=== PATIENT | male | born 1975 | race Caucasian/White ===

== ENCOUNTER → 2017-12-08 15:18 | Outpatient (CLI) | payer OTHER, MEDICAID, SELFPAY ==
--- NOTE | 2017-12-08 | DI.MRI.S_ITS ---
PROCEDURE: MR CERVICAL SPINE WO CON INDICATIONS: Cervical stenosis TECHNIQUE: Noncontrast sagittal T1 spin echo and T2 fast spin echo, sagittal STIR, foraminal oblique sagittal T2 fast spin echo, and axial gradient echo or T2 fast spin echo through the cervical spine. COMPARISON: [facility], MR, MR CERVICAL SPINE WITHOUT CONTRAST, 06/14/2017, 20:02. FINDINGS: Image quality: Excellent. Alignment and Curvature: There is loss of normal cervical lordosis. There is anterior fusion of C5-C6. Bone Marrow: Marrow demonstrates normal overall signal. Anterior fusion of C5-C6 has been performed, as before. Spinal Cord: Visualized spinal cord has normal size and signal. No cerebellar tonsillar herniation. Paraspinous Soft Tissues: No paravertebral masses. Prevertebral soft tissues are normal in thickness. C2-C3: Congenital canal stenosis. Disc desiccation and diffuse disc bulge. Bilateral facet hypertrophy. Mild canal stenosis. Mild left foraminal stenosis. No right foraminal stenosis. No change. C3-C4: Congenital canal stenosis. Disc desiccation and diffuse disc bulge. Bilateral facet and uncovertebral hypertrophy. Overall moderate canal stenosis and moderate bilateral foraminal stenosis. No change. C4-C5: Disc desiccation and diffuse disc bulge. Congenital canal stenosis. Bilateral facet and uncovertebral hypertrophy. Mild to moderate canal stenosis. Mild foraminal stenosis bilaterally. No change. C5-C6: Status post fusion. Residual disc osteophyte complex. Bilateral facet and uncovertebral hypertrophy, right greater than left. Congenital canal stenosis. Moderate to severe canal stenosis. Minimal right cord flattening. Severe right and moderate left foraminal stenosis. No change. C6-C7: Congenital canal stenosis. Disc desiccation and diffuse disc bulge with superimposed left paracentral broad-based protrusion. Bilateral facet and uncovertebral hypertrophy. Moderate to severe canal stenosis. Minimal cord flattening. Severe left and moderate right foraminal stenosis. No definite change. C7-T1: Congenital canal stenosis. Disc desiccation and diffuse disc bulge. Bilateral facet and uncovertebral hypertrophy. Mild canal stenosis. Severe left and mild right foraminal stenosis. No change. IMPRESSION: 1. No significant change compared to 1.3.18. 2. Status post C5-C6 fusion. 3. Diffuse congenital canal stenosis with superimposed disc and facet disease, as well as uncovertebral hypertrophy. 4. Multilevel canal stenoses, worst at C5-C6 and C6-C7, where there is minimal cord flattening present. 5. Multilevel foraminal stenoses, worst at C5-C6 right greater than left, at C6-C7 left greater than right, and at C7-T1 left greater than right. Dictated by: Jostin Adame M.D. on 12/08/2017 at 15:55 Approved by: Jostin Adame M.D. on 12/08/2017 at 16:02
== END ==
PROVIDERS: PCP Family Medicine; Visit Provider Neurological Surgery
DX: M48.02 Spinal stenosis, cervical region (principal)
CPT/HCPCS: 72141

== ENCOUNTER → 2020-03-19 08:05 | Outpatient (CLI) | payer OTHER, MEDICAID, SELFPAY ==
[2020-03-19 09:43] LABS: Alanine Aminotransferase 44 IU/L (<50); Albumin 4.3 g/dL (3.5-5.0); Albumin Globulin Ratio 1.6 (1.0-2.8); Alkaline Phosphatase 73 U/L (38-126); Aspartate Aminotransferase 30 IU/L (17-59); Bilirubin Total 0.4 mg/dL (0.2-1.3); Blood Urea Nitrogen 16 mg/dL (9-20); Calcium 9.2 mg/dL (8.4-10.2); Carbon Dioxide 29 mmol/L (22-32); Chloride 104 mmol/L (98-107); Cholesterol 156 mg/dL (140-199); Estimated Glomerular Filt Rate > 60.0 mL/min (>60); Globulin 2.7 g/dL (1.7-4.1); Glucose 99 mg/dL (70-100); HDL Cholesterol 45 mg/dL (40-60); HEMOLYSIS < 15 (0-50); LDL Cholesterol Calculated 71 mg/dL (<100); Potassium 4.2 mmol/L (3.4-5.1); Sodium 140 mmol/L (137-145); Triglycerides 200 mg/dL (35-150)
[2020-03-19 09:43] LABS: Creatinine Urine Random 144.3 mg/dL
[2020-03-19 09:52] LABS: Microalbumin Urine Random < 0.6 mg/dL (0-1.6)
== END ==
PROVIDERS: PCP Family Medicine; Referring Provider Family Medicine; Visit Provider Family Medicine
DX: I10 Essential (primary) hypertension (principal)
CPT/HCPCS: 36415; 80053; 80061; 82043; 82570

== ENCOUNTER → 2020-07-09 15:33 | Outpatient (CLI) | payer OTHER, MEDICAID, SELFPAY | PROVIDERS: PCP Family Medicine | DX: M54.12 Radiculopathy, cervical region (principal) ==

== ENCOUNTER → 2020-07-17 16:34 | Outpatient (CLI) | payer OTHER, MEDICAID, SELFPAY ==
--- NOTE | 2020-07-17 16:42 | DI.MRI.S_ITS ---
PROCEDURE: MR CERVICAL SPINE WO CON INDICATIONS: RADICULOPATHY,CERVICAL REGION TECHNIQUE: Noncontrast sagittal T1 spin echo and T2 fast spin echo, sagittal STIR, foraminal oblique sagittal T2 fast spin echo, and axial gradient echo or T2 fast spin echo through the cervical spine. COMPARISON: [facility], CR, XR CERVICAL SPINE 6+ VIEWS, 06/08/2017, 15:24. [facility], MR, MR CERVICAL SPINE WITHOUT CONTRAST, 06/14/2017, 20:02. [facility], MR, MR CERVICAL SPINE WO CON, 12/08/2017, 15:27. FINDINGS: Image quality: Diagnostic, with note made of motion artifact. There is artifact associated with the metallic hardware. Alignment and Curvature: Reversal of the normal cervical lordosis is seen, with the apex at the C5-C6 level. No focal AP alignment abnormality is seen. Bone Marrow: Marrow demonstrates normal overall signal. Spinal Cord: Visualized spinal cord has normal size and signal. No cerebellar tonsillar herniation. Paraspinous Soft Tissues: No paravertebral masses. Prevertebral soft tissues are normal in thickness. C2-C3: The disc height is well-preserved. Loss of disc signal is seen at this level. A mild degree of generalized disc osteophyte complex is seen. Moderate facet joint hypertrophy is seen. Moderate bilateral neural foraminal narrowing is seen. Mild central canal narrowing is seen. These imaging findings have progressed compared to the prior study. C3-C4: The disc height is well-preserved. Loss of disc signal is seen at this level. Moderate generalized disc osteophyte complex is seen. There is a central disc osteophyte protrusion seen. At least moderate facet can be seen at this level. There is moderate to severe bilateral neural foraminal narrowing seen. At least moderate central canal narrowing is seen. There is associated mass effect upon the ventral spinal cord. These imaging findings have progressed compared to the prior study. C4-C5: The disc height is well-preserved. Loss of disc signal is seen at this level. A mild degree of generalized disc osteophyte complex is seen. Moderate facet joint hypertrophy is seen. Moderate bilateral neural foraminal narrowing can be seen, right worse than left. Moderate central canal narrowing is seen. No associated mass effect can be seen upon ventral spinal cord. When comparison is made with the prior examination, these findings are similar. C5-C6: Postoperative changes are seen at this level, with anterior fixation hardware and a disc spacer. There is associated susceptibility artifact. Apparent interval postoperative change can be seen on the right, with hemilaminotomy. Please correlate with known patient history. Moderate generalized disc osteophyte complex is seen. Mild to moderate facet hypertrophy is seen. There is moderate left-sided and [id number] right-sided neural foraminal narrowing seen. Moderate central canal narrowing is seen. There is a mild degree mass effect upon the ventral spinal cord. This level is overall improved compared to the prior MRI, with resolution of the previously seen right foraminal disc osteophyte protrusion. C6-C7: Moderate loss of disc height is seen. Loss of disc signal is seen. Moderate generalized disc osteophyte complex is seen. Facet there is moderate left-sided and mild right-sided neural foraminal narrowing seen. Mild to moderate central canal narrowing is seen at this level. When comparison is made with the prior examination, these findings are similar. C7-T1: The disc height is well-preserved. Loss of disc signal is seen at this level. Moderate disc osteophyte complex is seen, which is eccentric to the left, with a left foraminal disc osteophyte protrusion, as on series 3, image 41. Mild to moderate facet hypertrophy is seen. There is severe left-sided and at least moderate right-sided neural foraminal narrowing seen. Mild to moderate central canal narrowing is seen. These degenerative changes have progressed compared to the prior. IMPRESSION: Progression of degenerative change at C2-C3, C3-C4, and C7-T1 compared to 2018. Apparent interval right hemilaminotomy with partial discectomy at C5-C6, with resolution of the previously seen right-sided disc osteophyte protrusion and foraminal narrowing. Please correlate with known interval history, however. Dictated by: Narciso Garcia M.D. on 07/17/2020 at 16:41 Approved by: Narciso Garcia M.D. on 07/17/2020 at 16:49
== END ==
PROVIDERS: PCP Family Medicine
DX: M47.22 Other spondylosis with radiculopathy, cervical region (principal)
CPT/HCPCS: 72141

== ENCOUNTER → 2020-09-11 15:35 | Outpatient (CLI) | payer OTHER, MEDICAID, SELFPAY ==
[2020-09-11] MEDS: COVID-19 VACC #1, MRNA(MOD) 100 MCG/0.5 ML VIAL IM (15:42)
== END ==
PROVIDERS: PCP Family Medicine; Visit Provider Internal Medicine
DX: Z23 Encounter for immunization (principal)
CPT/HCPCS: 0011A; 91301

== ENCOUNTER → 2020-10-09 15:35 | Outpatient (CLI) | payer OTHER, MEDICAID, SELFPAY ==
[2020-10-09] MEDS: COVID-19 VACC #2, MRNA(MOD) 100 MCG/0.5 ML VIAL IM (15:44)
== END ==
PROVIDERS: PCP Family Medicine; Visit Provider Internal Medicine
DX: Z23 Encounter for immunization (principal)
CPT/HCPCS: 0012A; 91301

== ENCOUNTER 2021-01-13 13:00 | Outpatient (RCR) | payer OTHER, MEDICAID, SELFPAY ==
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
--- NOTE | 2020-11-04 18:00 | PT.OPPOC ---
Physical, Occupational & Speech Therapy At [facility] Current Diagnoses Spondylosis without myelopathy or radiculopathy, cervical region (11/04/20) Pain in right hand (11/04/20) Pain in left hand (11/04/20) Abnormal posture (11/04/20) Weakness (11/04/20) Visit Care Team Role Provider Type Karena Mora MD Family Provider Physician Primary Care Provider Specialty: Family Practice Address: [address] [place] [address], [place], [place], [facility] Email: [email or web address] Paula Caban MD Attending Provider Non-Staff Referring Provider Specialty: Medical Address: [address] [place] [address], [place], [place], [facility] Email: Plan Of Care PT-OP-T Assessment and Plan Start: 11/03/20 17:49 Freq: Status: Active Protocol: Document 11/04/20 15:22 [facility] (Rec: 11/04/20 16:47 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 LTG Duration 01/04/21 ROM Correction Goal (LTG) pt will improve neck ROM for rotations by at least 20 deg to improve ability to turn when driving. LTG Duration 01/04/21 strength Short Term Goal (STG) pt will be indep with HEP. STG Duration 12/05/20 Form Tamper Operator Goal (LTG) Pt will score 5/5 on EFTto show imrpoved scap and core stabiltiy w/force applied to his system along w/normal ship runner strength for his age w/3 trials. LTG Duration 01/04/21 NDI Impairment Short Term Goal (STG) Pt will imrpove NDI to at least to show improved functional ability. STG Duration 12/05/20 Correction Goal (LTG) Pt will imrpove NDI to at least to show improved functional ability. LTG Duration 01/04/21 Assessment Summary Assessment Pt presents w/ongoing neck pain with radicular pain into B shoulders and hands that is worse in AM and if he does too much which limits his ability to work. He has history of 2 cervical surgeries with one being cervical fusion. He has progressive degeneration per imaging reports recently and is having signifcant enough pain that he cannot work at all anymore or play sports w/ his teenage son. He is very motivated to improve and does stretch at home to help with his pain for relief. He has poor core stability and scap stability as evidenced by scap elevation and body leaning w/ MMT. He would bneeift from skilled PT to work on posture, strength, ROM and pain management. Physical Therapy Plan Frequency and Duration Frequency of Treatment 1-2x.week Duration of Treatment 3 months Plan of Care Start Date 11/04/20 Plan of Care End Date 02/04/21 Therapeutic Interventions Therapeutic Interventions Aquatic Therapy,Balance Training,Gait Training,Home Exercise Program,Joint Mobilizations,Manual Therapy, Neuromuscular Re-education, Patient/Caregiver Education, Self-Care/Home Management,Soft Tissue Mobilization,Taping, Therapeutic Activities, Therapeutic Exercises Modalities Cold Pack/Ice Massage,Electric Stimulation,Hot Packs, Ultrasound Next Visit Focus/Plan Next Note Type Treatment Note Next Visit Plan see what exercises pt is doing and make sure doing w/good form and not aggrevating symptoms, wall posture, work on posture, manual soft tissue to scar & cervical mm, scap PNF Plan of Care Dates Plan of Care Start Date 11/04/20 Plan of Care End Date 02/04/21 Electronically Signed by: Karena Patel, PT 11/04/20 1800 Please Sign and Return: I have reviewed this Plan of Care and certify that the skilled therapy services above are required to meet the patient?s needs. Physician Signature Date Printed Name and Credentials Clinical Instructor Signature Printed Name and Credentials
--- NOTE | 2020-11-06 15:58 | PT.OTN ---
Current Diagnoses Spondylosis without myelopathy or radiculopathy, cervical region (11/06/20) Pain in right hand (11/06/20) Pain in left hand (11/06/20) Abnormal posture (11/06/20) Weakness (11/06/20) Physical Therapy Treatment Note PT-OP-A Visit Information Start: 11/03/20 17:49 Freq: Status: Active Protocol: Document 11/06/20 15:18 SP (Rec: 11/06/20 17:00 SP [id number]) Out-Patient Physical Therapy Visit Information Visit Information Visit Type Treatment Note Visit Start Time 15:18 Visit Stop Time 15:58 Total Visit Minutes 40 Visit Number 08/05 Number of SNORKELLING INSTRUCTOR Visits 1 PT-OP-B Current Condition Start: 11/03/20 17:49 Freq: Status: Active Protocol: Document 11/04/20 15:22 [facility] (Rec: 11/04/20 16:47 [facility] [id number]) Current Condition History of Current Condition Onset Date 13 year old Current Complaints neck pain, arm pain, MENDEZ History of Current Condition Pt reports his last surgery helped his legs (had pain in legs & difficulty walking) and that got better but not his arms. Pt just had a EMG done at [facility] and they told him C5 -8 was messed up mostly on L and some on R. His MDs have told him he has DDD & arthritis. Pt reprots pain in neck started at 13 playing football (he was ramming his head into other players-no specific injury but just noticed neck bothering him then). It just got worse as he got older. Pt got an injection 4-5 years ago and has 3-4 of them over last decade but none have helped. He is supposed ot schedule to get an injection soon. Pt reports this is the first time that the MD thinks that degernation is causing the nerve symptoms. Pt reports he did PT after last surgery and legs got better but neck and arms never got better. Pt reports pain is about the same since when he last got surgery. 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 Pt reports hands don't wrok well so things take him twice as long. denies numbness tingling or lightheadness or dizziness Prior Treatments and Tests surgeries, injections , C5-6 ACDF over 11 years ago, LC6-7, C7-T1 laminotomy/foraminotomy and R C4-5 and C5-6 laminectomy and foraminotomy Future Testing and Treatments Planned Dr. Rivas doing injection Treatment Goals Patient/Caregiver Goals return to work, be able to play catch w/son w/o hurting himself (never has d/t pain), B carpel tunnel release Personal Factors Other Personal Factors That May Effect neck pain, MENDEZ, depression, HTN Therapy/Recovery , 2 neck sugeries, Appy PT-OP-C Subjective Start: 11/03/20 17:49 Freq: Status: Active Protocol: Document 11/06/20 15:18 SP (Rec: 11/06/20 17:00 SP [id number]) OP-PT Subjective Patient Comments Patient Comments Pt reported always have pain and stiffness in my neck I do do some stretching on own and started the pec stretches given last visit with no problems with it. PT-OP-F Manual Assessment Start: 11/03/20 17:49 Freq: Status: Active Protocol: Document 11/04/20 15:22 [facility] (Rec: 11/04/20 16:47 [facility] [id number]) Manual Assessments Soft Tissue Assessment Soft Tissue Mobility Assessment scar significantly adhered, UT & LS, scalenes tight R>L, L>R pec tightness Joint Mobility Assessment Joint Mobility Assessment R 1st rib elevated PT-OP-J Posture/Palpation/Skin Start: 11/03/20 17:49 Freq: Status: Active Protocol: Document 11/04/20 15:22 [facility] (Rec: 11/04/20 16:47 [facility] [id number]) Posture Evaluation John Postural Classification System John Postural Classifications Posterior/Anterior Vertebral Compression Test 1 Comments Posture Comments iknc kyphosis, fwd rounded shoulders , fwd head w/upper cervical ext PT-OP-K Range of Motion Start: 11/03/20 17:49 Freq: Status: Active Protocol: Document 11/04/20 15:22 [facility] (Rec: 11/04/20 16:47 [facility] [id number]) Cervical Spine Range of Motion Cervical Spine Active Degrees Flexion 45 Extension 32 Rotation Left 36 Rotation Right 36 Lateral Flexion Left 38 Lateral Flexion Right 29 ROM Limitations Soft Tissue Tightness,Bony Restriction,Pain PT-OP-L Special Tests Start: 11/03/20 17:49 Freq: Status: Active Protocol: Document 11/04/20 15:22 [facility] (Rec: 11/04/20 16:47 [facility] [id number]) Special Tests Cervical Spine Special Tests Spurling's Test Test Results neg Vertebral Artery Test Results neg Alar Ligament Test Results neg Neural Special Tests- Upper Body Ulnar Nerve Tension Test Results neg R, positive L Radial Nerve Tension Test Results neg L, positive R Median Nerve Tension Test Results positive B PT-OP-M Strength Start: 11/03/20 17:49 Freq: Status: Active Protocol: Document 11/04/20 15:22 [facility] (Rec: 11/04/20 16:47 [facility] [id number]) Shoulder Strength Shoulder Manual Muscle Testing Right Flexion 4+ Good+ Extension 5 Normal Abduction (C5) 4+ Good+ Adduction 5 Normal External Rotation 5 Normal Internal Rotation 5 Normal Horizontal Abduction 5 Normal Horizontal Adduction 5 Normal Left Flexion 4+ Good+ Extension 5 Normal Abduction (C5) 4+ Good+ Adduction 5 Normal External Rotation 5 Normal Internal Rotation 5 Normal Horizontal Abduction 5 Normal Horizontal Adduction 5 Normal Elbow/Forearm Strength Elbow and Forearm Manual Muscle Testing Right Flexion (C6) 4 Good Extension (C7) 5 Normal Pronation 5 Normal Supination 5 Normal Comments pain w/supination Left Flexion (C6) 4 Good Extension (C7) 5 Normal Pronation 5 Normal Supination 5 Normal Hand Rn Baby/Pinch Strength Hand Strength Right Comments 115#, 100#, 100# stave grader strength Left Comments 130#, 105#, 75# stave grader strength PT-OP-Q Treatments Start: 11/03/20 17:49 Freq: Status: Active Protocol: Document 11/06/20 15:18 SP (Rec: 11/06/20 17:00 SP [id number]) Therapeutic Exercises Supine Exercises chin tuck (DNF) Supine Exercise Name no lift Resistance AROM Reps/Minutes 2 sec hold x5 Comments cued slow fluid movement Prone Exercises scap retraction/arm lift/ head lift Prone Exercise Name performed in PT to facilitate alignment (recheck if add to HEP beneficial) Resistance AROM lift and hold adding each after 5 sec hold each Equipment Used forehead on towel roll Reps/Minutes 5 sec hold x5 each added Sitting Exercises CS SNAGS Sitting Exercise Name rotation, demonstrated already doing ext self Side bilateral Equipment Used towel Reps/Minutes 20 hold x3 Comments good feedback response this feels good UT and lev scap stretch Side bilateral Reps/Minutes 30 x2 each Comments cued can give little over pressure with opposite UE. scap retraction w/ shld ER Side bilateral Resistance Tb #2 Reps/Minutes x10 Comments cued tall posture w/ neutral CS, good form Standing Exercises self STMs Standing Exercise Name ball rolling scap complex, MWM post neck theracane head nod/ turns Side bilateral Equipment Used racquetball stand at wall, theracane post neck Comments good feedback response pec stretch Standing Exercise Name corner Side bilateral Reps/Minutes 30 sec x3 Manual Therapy Treatment Soft Tissue Mobilization STMs Body Location UT, Lev scap, suboccipital release Mobilization Type Myofascial Release,Sustained Pressure,Other Intensity/Depth Moderate Body Position Hooklying Comments MWM head nods/ turns, instructed self STMs using theracane MWM and racquetball rolling interscap at wall. 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 LTG Duration 01/04/21 ROM Art Historian Goal (LTG) pt will improve neck ROM for rotations by at least 20 deg to improve ability to turn when driving. LTG Duration 01/04/21 strength Short Term Goal (STG) pt will be indep with HEP. 11/06/20: Initiated: DNF, scap retraction w/ shld ER TB, pec/ UT/ lev scap stretching, CS rotation and ext SNAGS, self STMs using theracane/ racquetball. STG Duration 12/05/20 Skilled Nursing Goal (LTG) Pt will score 5/5 on EFTto show imrpoved scap and core stabiltiy w/force applied to his system along w/normal stave grader strength for his age w/3 trials. LTG Duration 01/04/21 NDI Impairment 27/50 Short Term Goal (STG) Pt will imrpove NDI to at least 22/50 to show improved functional ability. STG Duration 12/05/20 Skilled Nursing Goal (LTG) Pt will imrpove NDI to at least 12/50 to show improved functional ability. LTG Duration 01/04/21 Assessment Summary Assessment Pt responded well to manual, DNF CS stabilization engagement supine/ prone, stretching, MWM self STMs neck w /theracane and rolling post scap musculature at wall and SNAGS and initiated posture scap retraction w/ shld ER TB today able to rotation head more. I feel more loose, I might look into getting a theracane and use my tennis ball at home. Physical Therapy Plan Frequency and Duration Frequency of Treatment 1-2x.week Duration of Treatment 3 months Plan of Care Start Date 11/04/20 Plan of Care End Date 02/04/21 Therapeutic Interventions Therapeutic Interventions Aquatic Therapy,Balance Training,Gait Training,Home Exercise Program,Joint Mobilizations,Manual Therapy, Neuromuscular Re-education, Patient/Caregiver Education, Self-Care/Home Management,Soft Tissue Mobilization,Taping, Therapeutic Activities, Therapeutic Exercises Modalities Cold Pack/Ice Massage,Electric Stimulation,Hot Packs, Ultrasound Next Visit Focus/Plan Next Note Type Treatment Note Next Visit Plan Assess response to initiated ( see HEP goal) and ther ex did today. recheck what exercises pt is doing on own and make sure doing w/good form and not aggrevating symptoms. Future tx initiate wall posture, work on posture, manual soft tissue to scar & cervical mm, scap PNF
--- NOTE | 2020-11-11 15:10 | PT.OTN ---
Current Diagnoses Spondylosis without myelopathy or radiculopathy, cervical region (11/11/20) Pain in right hand (11/11/20) Pain in left hand (11/11/20) Abnormal posture (11/11/20) Weakness (11/11/20) Physical Therapy Treatment Note PT-OP-A Visit Information Start: 11/03/20 17:49 Freq: Status: Active Protocol: Document 11/11/20 15:03 OF (Rec: 11/11/20 15:10 OF [id number]) Out-Patient Physical Therapy Visit Information Visit Information Visit Type Treatment Note Visit Start Time 13:40 Visit Stop Time 14:20 Total Visit Minutes 40 Visit Number 3 Number of SURFACE SUPPLY BREATHING APPARATUS Visits 1 PT-OP-B Current Condition Start: 11/03/20 17:49 Freq: Status: Active Protocol: Document 11/04/20 15:22 [facility] (Rec: 11/04/20 16:47 [facility] [id number]) Current Condition History of Current Condition Onset Date 13 year old Current Complaints neck pain, arm pain, MENDEZ History of Current Condition Pt reports his last surgery helped his legs (had pain in legs & difficulty walking) and that got better but not his arms. Pt just had a EMG done at [facility] and they told him C5 -8 was messed up mostly on L and some on R. His MDs have told him he has DDD & arthritis. Pt reprots pain in neck started at 13 playing football (he was ramming his head into other players-no specific injury but just noticed neck bothering him then). It just got worse as he got older. Pt got an injection 4-5 years ago and has 3-4 of them over last decade but none have helped. He is supposed ot schedule to get an injection soon. Pt reports this is the first time that the MD thinks that degernation is causing the nerve symptoms. Pt reports he did PT after last surgery and legs got better but neck and arms never got better. Pt reports pain is about the same since when he last got surgery. 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 Pt reports hands don't wrok well so things take him twice as long. denies numbness tingling or lightheadness or dizziness Prior Treatments and Tests surgeries, injections , C5-6 ACDF over 11 years ago, LC6-7, C7-T1 laminotomy/foraminotomy and R C4-5 and C5-6 laminectomy and foraminotomy Future Testing and Treatments Planned Dr. Rivas doing injection Treatment Goals Patient/Caregiver Goals return to work, be able to play catch w/son w/o hurting himself (never has d/t pain), B carpel tunnel release Personal Factors Other Personal Factors That May Effect neck pain, MENDEZ, depression, HTN Therapy/Recovery , 2 neck sugeries, Appy PT-OP-C Subjective Start: 11/03/20 17:49 Freq: Status: Active Protocol: Document 11/11/20 15:03 OF (Rec: 11/11/20 15:10 OF [id number]) OP-PT Subjective Patient Comments Patient Comments Pt states he has had difficulty adhering to HEP, not performing daily Patient Reported Progress Same Patient Questionnaires Neck Disability Index NDI Score 27/50 Quick Dash- Upper Extremity Quick Dash UE Score 47.2 OP-PT Pain Assessment Pain Assessment Grid Paper Pain Assessment Grid Completed Yes Location neck Pain Location Details R>L post neck & UT region Intensity 3 Scale Used worst:8/10 Description Aching,Cramping,Sharp Frequency Daily Pain Aggravating Factors Lifting Other Pain Aggravating Factors 1st thing in AM, neck in weird position Pain Alleviating Factors Heat Other Pain Alleviating Factors stop&do nothing, has to change postition d/t ext anything hurts, stretch PT-OP-F Manual Assessment Start: 11/03/20 17:49 Freq: Status: Active Protocol: Document 11/04/20 15:22 [facility] (Rec: 11/04/20 16:47 [facility] [id number]) Manual Assessments Soft Tissue Assessment Soft Tissue Mobility Assessment scar significantly adhered, UT & LS, scalenes tight R>L, L>R pec tightness Joint Mobility Assessment Joint Mobility Assessment R 1st rib elevated PT-OP-J Posture/Palpation/Skin Start: 11/03/20 17:49 Freq: Status: Active Protocol: Document 11/04/20 15:22 [facility] (Rec: 11/04/20 16:47 [facility] [id number]) Posture Evaluation John Postural Classification System [facility] Postural Classifications Posterior/Anterior Vertebral Compression Test 1 Comments Posture Comments iknc kyphosis, fwd rounded shoulders , fwd head w/upper cervical ext PT-OP-K Range of Motion Start: 11/03/20 17:49 Freq: Status: Active Protocol: Document 11/04/20 15:22 [facility] (Rec: 11/04/20 16:47 [facility] [id number]) Cervical Spine Range of Motion Cervical Spine Active Degrees Flexion 45 Extension 32 Rotation Left 36 Rotation Right 36 Lateral Flexion Left 38 Lateral Flexion Right 29 ROM Limitations Soft Tissue Tightness,Bony Restriction,Pain PT-OP-L Special Tests Start: 11/03/20 17:49 Freq: Status: Active Protocol: Document 11/04/20 15:22 [facility] (Rec: 11/04/20 16:47 [facility] [id number]) Special Tests Cervical Spine Special Tests Spurling's Test Test Results neg Vertebral Artery Test Results neg Alar Ligament Test Results neg Neural Special Tests- Upper Body Ulnar Nerve Tension Test Results neg R, positive L Radial Nerve Tension Test Results neg L, positive R Median Nerve Tension Test Results positive B PT-OP-M Strength Start: 11/03/20 17:49 Freq: Status: Active Protocol: Document 11/04/20 15:22 [facility] (Rec: 11/04/20 16:47 [facility] [id number]) Shoulder Strength Shoulder Manual Muscle Testing Right Flexion 4+ Good+ Extension 5 Normal Abduction (C5) 4+ Good+ Adduction 5 Normal External Rotation 5 Normal Internal Rotation 5 Normal Horizontal Abduction 5 Normal Horizontal Adduction 5 Normal Left Flexion 4+ Good+ Extension 5 Normal Abduction (C5) 4+ Good+ Adduction 5 Normal External Rotation 5 Normal Internal Rotation 5 Normal Horizontal Abduction 5 Normal Horizontal Adduction 5 Normal Elbow/Forearm Strength Elbow and Forearm Manual Muscle Testing Right Flexion (C6) 4 Good Extension (C7) 5 Normal Pronation 5 Normal Supination 5 Normal Comments pain w/supination Left Flexion (C6) 4 Good Extension (C7) 5 Normal Pronation 5 Normal Supination 5 Normal Hand Air Pollution Auditor/Pinch Strength Hand Strength Right Comments 115#, 100#, 100# washer blanket strength Left Comments 130#, 105#, 75# washer blanket strength PT-OP-Q Treatments Start: 11/03/20 17:49 Freq: Status: Active Protocol: Document 11/11/20 15:03 OF (Rec: 11/11/20 15:10 OF [id number]) Therapeutic Exercises Supine Exercises chin tuck (DNF) Supine Exercise Name no lift Resistance AROM Reps/Minutes 2 sec hold x5 Comments cued slow fluid movement Prone Exercises scap retraction/arm lift/ head lift Prone Exercise Name performed in PT to facilitate alignment (recheck if add to HEP beneficial) Resistance AROM lift and hold adding each after 5 sec hold each Equipment Used forehead on towel roll Reps/Minutes 5 sec hold x5 each added Sitting Exercises CS SNAGS Sitting Exercise Name rotation, demonstrated already doing ext self Side bilateral Equipment Used towel Reps/Minutes 20 hold x3 UT and lev scap stretch Side bilateral Reps/Minutes 30 x2 each Comments cued can give little over pressure with opposite UE. scap retraction w/ shld ER Side bilateral Resistance Tb #2 Reps/Minutes x10 Comments cued tall posture w/ neutral CS, good form Standing Exercises self STMs Standing Exercise Name ball rolling scap complex, MWM post neck Side bilateral Equipment Used racquetball stand at wall pec stretch Standing Exercise Name corner Side bilateral Reps/Minutes 30 sec x3 Manual Therapy Treatment Soft Tissue Mobilization STMs Mobilization Type Sustained Pressure,Other Self-Care/Home Management Treatment Education Other Education pt advised to perform HEP as instructed, pace self, use towel and ball for assisting stretch PT-OP-T Assessment and Plan Start: 11/03/20 17:49 Freq: Status: Active Protocol: Document 11/11/20 15:03 OF (Rec: 11/11/20 15:10 OF [id number]) Physical Therapy Assessment Rehab Potential Rehabilitation Potential Good Evaluation Complexity Number of Personal Factors/Comorbidities 3 or More Number of Body Systems Impaired 4 or More Clinical Presentation at Evaluation Evolving Impairments Impairments Activity Tolerance,Functional Activities,Functional Mobility ,Pain,Posture,ROM,Soft Tissue Mobility,Strength Goals activities Correction Goal (LTG) 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 LTG Duration 01/04/21 ROM Correction Goal (LTG) pt will improve neck ROM for rotations by at least 20 deg to improve ability to turn when driving. LTG Duration 01/04/21 strength Short Term Goal (STG) pt will be indep with HEP. 11/06/20: Initiated: DNF, scap retraction w/ shld ER TB, pec/ UT/ lev scap stretching, CS rotation and ext SNAGS, self STMs using theracane/ racquetball. STG Duration 12/05/20 Correction Goal (LTG) Pt will score 5/5 on EFTto show imrpoved scap and core stabiltiy w/force applied to his system along w/normal washer blanket strength for his age w/3 trials. LTG Duration 01/04/21 NDI Impairment 27/50 Short Term Goal (STG) Pt will imrpove NDI to at least 22/50 to show improved functional ability. STG Duration 12/05/20 French Pastry Cook Goal (LTG) Pt will imrpove NDI to at least 12/50 to show improved functional ability. LTG Duration 01/04/21 Assessment Summary Assessment Pt responded well to manual, DNF CS stabilization engagement supine/ prone, stretching, MWM rolling post scap musculature at wall and SNAGS and initiated posture scap retraction w/ shld ER TB today able to rotation head more. I feel more better than when I came in Physical Therapy Plan Frequency and Duration Frequency of Treatment 1-2x.week Duration of Treatment 3 months Plan of Care Start Date 11/04/20 Plan of Care End Date 02/04/21 Therapeutic Interventions Therapeutic Interventions Aquatic Therapy,Balance Training,Gait Training,Home Exercise Program,Joint Mobilizations,Manual Therapy, Neuromuscular Re-education, Patient/Caregiver Education, Self-Care/Home Management,Soft Tissue Mobilization,Taping, Therapeutic Activities, Therapeutic Exercises Modalities Cold Pack/Ice Massage,Electric Stimulation,Hot Packs, Ultrasound Next Visit Focus/Plan Next Note Type Treatment Note Next Visit Plan Pt is <50% accurate with HEP, continue to educate on proper technique. Future tx initiate wall posture, work on posture, manual soft tissue to scar & cervical mm, scap PNF
--- NOTE | 2020-11-20 16:12 | PT.OTN ---
Current Diagnoses Spondylosis without myelopathy or radiculopathy, cervical region (11/20/20) Pain in right hand (11/20/20) Pain in left hand (11/20/20) Abnormal posture (11/20/20) Weakness (11/20/20) Physical Therapy Treatment Note PT-OP-A Visit Information Start: 11/03/20 17:49 Freq: Status: Active Protocol: Document 11/20/20 15:33 MA (Rec: 11/20/20 16:11 MA [id number]) Out-Patient Physical Therapy Visit Information Visit Information Visit Type Treatment Note Visit Start Time 15:15 Visit Stop Time 16:55 Total Visit Minutes 40 Visit Number 4 Number of SECURITY ORDERLY Visits 2 PT-OP-B Current Condition Start: 11/03/20 17:49 Freq: Status: Active Protocol: Document 11/04/20 15:22 LR (Rec: 11/04/20 16:47 LR [id number]) Current Condition History of Current Condition Onset Date 13 year old Current Complaints neck pain, arm pain, MENDEZ History of Current Condition Pt reports his last surgery helped his legs (had pain in legs & difficulty walking) and that got better but not his arms. Pt just had a EMG done at [facility] and they told him C5 -8 was messed up mostly on L and some on R. His MDs have told him he has DDD & arthritis. Pt reprots pain in neck started at 13 playing football (he was ramming his head into other players-no specific injury but just noticed neck bothering him then). It just got worse as he got older. Pt got an injection 4-5 years ago and has 3-4 of them over last decade but none have helped. He is supposed ot schedule to get an injection soon. Pt reports this is the first time that the MD thinks that degernation is causing the nerve symptoms. Pt reports he did PT after last surgery and legs got better but neck and arms never got better. Pt reports pain is about the same since when he last got surgery. 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 Pt reports hands don't wrok well so things take him twice as long. denies numbness tingling or lightheadness or dizziness Prior Treatments and Tests surgeries, injections , C5-6 ACDF over 11 years ago, LC6-7, C7-T1 laminotomy/foraminotomy and R C4-5 and C5-6 laminectomy and foraminotomy Future Testing and Treatments Planned Dr. Rivas doing injection Treatment Goals Patient/Caregiver Goals return to work, be able to play catch w/son w/o hurting himself (never has d/t pain), B carpel tunnel release Personal Factors Other Personal Factors That May Effect neck pain, MENDEZ, depression, HTN Therapy/Recovery , 2 neck sugeries, Appy PT-OP-C Subjective Start: 11/03/20 17:49 Freq: Status: Active Protocol: Document 11/20/20 15:33 MA (Rec: 11/20/20 16:11 MA [id number]) OP-PT Subjective Patient Comments Patient Comments Pt states he has been doing HEP more often. PT-OP-F Manual Assessment Start: 11/03/20 17:49 Freq: Status: Active Protocol: Document 11/04/20 15:22 [facility] (Rec: 11/04/20 16:47 [facility] [id number]) Manual Assessments Soft Tissue Assessment Soft Tissue Mobility Assessment scar significantly adhered, UT & LS, scalenes tight R>L, L>R pec tightness Joint Mobility Assessment Joint Mobility Assessment R 1st rib elevated PT-OP-J Posture/Palpation/Skin Start: 11/03/20 17:49 Freq: Status: Active Protocol: Document 11/04/20 15:22 [facility] (Rec: 11/04/20 16:47 [facility] [id number]) Posture Evaluation [facility] Postural Classification System John Postural Classifications Posterior/Anterior Vertebral Compression Test 1 Comments Posture Comments iknc kyphosis, fwd rounded shoulders , fwd head w/upper cervical ext PT-OP-K Range of Motion Start: 11/03/20 17:49 Freq: Status: Active Protocol: Document 11/04/20 15:22 [facility] (Rec: 11/04/20 16:47 [facility] [id number]) Cervical Spine Range of Motion Cervical Spine Active Degrees Flexion 45 Extension 32 Rotation Left 36 Rotation Right 36 Lateral Flexion Left 38 Lateral Flexion Right 29 ROM Limitations Soft Tissue Tightness,Bony Restriction,Pain PT-OP-L Special Tests Start: 11/03/20 17:49 Freq: Status: Active Protocol: Document 11/04/20 15:22 [facility] (Rec: 11/04/20 16:47 [facility] [id number]) Special Tests Cervical Spine Special Tests Spurling's Test Test Results neg Vertebral Artery Test Results neg Alar Ligament Test Results neg Neural Special Tests- Upper Body Ulnar Nerve Tension Test Results neg R, positive L Radial Nerve Tension Test Results neg L, positive R Median Nerve Tension Test Results positive B PT-OP-M Strength Start: 11/03/20 17:49 Freq: Status: Active Protocol: Document 11/04/20 15:22 [facility] (Rec: 11/04/20 16:47 [facility] [id number]) Shoulder Strength Shoulder Manual Muscle Testing Right Flexion 4+ Good+ Extension 5 Normal Abduction (C5) 4+ Good+ Adduction 5 Normal External Rotation 5 Normal Internal Rotation 5 Normal Horizontal Abduction 5 Normal Horizontal Adduction 5 Normal Left Flexion 4+ Good+ Extension 5 Normal Abduction (C5) 4+ Good+ Adduction 5 Normal External Rotation 5 Normal Internal Rotation 5 Normal Horizontal Abduction 5 Normal Horizontal Adduction 5 Normal Elbow/Forearm Strength Elbow and Forearm Manual Muscle Testing Right Flexion (C6) 4 Good Extension (C7) 5 Normal Pronation 5 Normal Supination 5 Normal Comments pain w/supination Left Flexion (C6) 4 Good Extension (C7) 5 Normal Pronation 5 Normal Supination 5 Normal Hand Children'S Author/Pinch Strength Hand Strength Right Comments 115#, 100#, 100# superintendent custodian janitor strength Left Comments 130#, 105#, 75# superintendent custodian janitor strength PT-OP-Q Treatments Start: 11/03/20 17:49 Freq: Status: Active Protocol: Document 11/20/20 15:33 MA (Rec: 11/20/20 16:11 MA [id number]) Therapeutic Exercises Supine Exercises chin tuck (DNF) Supine Exercise Name no lift Resistance AROM Reps/Minutes 2 sec hold x5 Comments cued slow fluid movement Prone Exercises scap retraction/arm lift/ head lift Prone Exercise Name performed in PT to facilitate alignment (recheck if add to HEP beneficial) Resistance AROM lift and hold adding each after 5 sec hold each Equipment Used forehead on towel roll Reps/Minutes 5 sec hold x5 each added Sitting Exercises CS SNAGS Sitting Exercise Name rotation, demonstrated already doing ext self Side bilateral Equipment Used towel Reps/Minutes 20 hold x3 UT and lev scap stretch Side bilateral Reps/Minutes 30 x2 each Comments cued can give little over pressure with opposite UE. scap retraction w/ shld ER Side bilateral Resistance Tb #2 Reps/Minutes x10 Comments cued tall posture w/ neutral CS, good form Standing Exercises Wall Posture Reps/Minutes 5x10 sec hold Comments cues for keeping spine against wall self STMs Standing Exercise Name ball rolling scap complex, MWM post neck Side bilateral Equipment Used racquetball stand at wall pec stretch Standing Exercise Name doorway Side bilateral Reps/Minutes 30 sec x3 Manual Therapy Treatment Soft Tissue Mobilization STMs Body Location UT, Lev scap, suboccipital release Mobilization Type Myofascial Release,Sustained Pressure,Other Intensity/Depth Moderate Body Position Hooklying Comments MWM head nods/ turns, instructed self STMs using theracane MWM and racquetball rolling interscap at wall. 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 LTG Duration 01/04/21 ROM Mcc Goal (LTG) pt will improve neck ROM for rotations by at least 20 deg to improve ability to turn when driving. LTG Duration 01/04/21 strength Short Term Goal (STG) pt will be indep with HEP. 11/06/20: Initiated: DNF, scap retraction w/ shld ER TB, pec/ UT/ lev scap stretching, CS rotation and ext SNAGS, self STMs using theracane/ racquetball. STG Duration 12/05/20 Electric Motors Salesperson Goal (LTG) Pt will score 5/5 on EFTto show imrpoved scap and core stabiltiy w/force applied to his system along w/normal superintendent custodian janitor strength for his age w/3 trials. LTG Duration 01/04/21 NDI Impairment 27/50 Short Term Goal (STG) Pt will imrpove NDI to at least 22/50 to show improved functional ability. STG Duration 12/05/20 Mcc Goal (LTG) Pt will imrpove NDI to at least 12/50 to show improved functional ability. LTG Duration 01/04/21 Assessment Summary Assessment Pt responds well again to manual therapy. When it comes time to review HEP exercises, pt cannot recall or properly demonstrate 5/7 of his exercises stating I don't think I have been shown this exercise before during multiple exercises. He can recall pec stretch properly but performs levator stretch improperly by pushing his head laterally instead of gently pulling laterally, moving ear toward shoulder. When corrected, pt states this feels so much better than what I was doing. Brought back up pictures of exercise from HEP with pt stating he still has his copy and does not need a new print out. Reminded pt of importance of performing HEP daily to see improvement in neck pain. Pt agrees to get tennis balls this weekend for self-STM and begin working on his exercises more often. Physical Therapy Plan Frequency and Duration Frequency of Treatment 1-2x.week Duration of Treatment 3 months Plan of Care Start Date 11/04/20 Plan of Care End Date 02/04/21 Therapeutic Interventions Therapeutic Interventions Aquatic Therapy,Balance Training,Gait Training,Home Exercise Program,Joint Mobilizations,Manual Therapy, Neuromuscular Re-education, Patient/Caregiver Education, Self-Care/Home Management,Soft Tissue Mobilization,Taping, Therapeutic Activities, Therapeutic Exercises Modalities Cold Pack/Ice Massage,Electric Stimulation,Hot Packs, Ultrasound Next Visit Focus/Plan Next Note Type Treatment Note Next Visit Plan Review all HEP exercises and continue working on wall posture. Continue to educate on proper technique for levator stretch. Manual soft tissue to scar & cervical mm, scap PNF
--- NOTE | 2020-11-25 14:30 | PT.OTN ---
Current Diagnoses Spondylosis without myelopathy or radiculopathy, cervical region (11/25/20) Pain in right hand (11/25/20) Pain in left hand (11/25/20) Abnormal posture (11/25/20) Weakness (11/25/20) Physical Therapy Treatment Note PT-OP-A Visit Information Start: 11/03/20 17:49 Freq: Status: Active Protocol: Document 11/25/20 14:23 OF (Rec: 11/25/20 14:29 OF [id number]) Out-Patient Physical Therapy Visit Information Visit Information Visit Type Treatment Note Visit Start Time 13:44 Visit Stop Time 14:20 Total Visit Minutes 36 Visit Number 4 PT-OP-B Current Condition Start: 11/03/20 17:49 Freq: Status: Active Protocol: Document 11/04/20 15:22 [facility] (Rec: 11/04/20 16:47 [facility] [id number]) Current Condition History of Current Condition Onset Date 13 year old Current Complaints neck pain, arm pain, MENDEZ History of Current Condition Pt reports his last surgery helped his legs (had pain in legs & difficulty walking) and that got better but not his arms. Pt just had a EMG done at [facility] and they told him C5 -8 was messed up mostly on L and some on R. His MDs have told him he has DDD & arthritis. Pt reprots pain in neck started at 13 playing football (he was ramming his head into other players-no specific injury but just noticed neck bothering him then). It just got worse as he got older. Pt got an injection 4-5 years ago and has 3-4 of them over last decade but none have helped. He is supposed ot schedule to get an injection soon. Pt reports this is the first time that the MD thinks that degernation is causing the nerve symptoms. Pt reports he did PT after last surgery and legs got better but neck and arms never got better. Pt reports pain is about the same since when he last got surgery. 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 Pt reports hands don't wrok well so things take him twice as long. denies numbness tingling or lightheadness or dizziness Prior Treatments and Tests surgeries, injections , C5-6 ACDF over 11 years ago, LC6-7, C7-T1 laminotomy/foraminotomy and R C4-5 and C5-6 laminectomy and foraminotomy Future Testing and Treatments Planned Dr. Rivas doing injection Treatment Goals Patient/Caregiver Goals return to work, be able to play catch w/son w/o hurting himself (never has d/t pain), B carpel tunnel release Personal Factors Other Personal Factors That May Effect neck pain, MENDEZ, depression, HTN Therapy/Recovery , 2 neck sugeries, Appy PT-OP-C Subjective Start: 11/03/20 17:49 Freq: Status: Active Protocol: Document 11/25/20 14:23 OF (Rec: 11/25/20 14:29 OF [id number]) OP-PT Subjective Patient Comments Patient Comments Pt states he has been unable to perform HEP, he states he has not obtained ball for self STM Patient Reported Progress Improving OP-PT Pain Assessment Pain Assessment Grid Paper Pain Assessment Grid Completed No Location neck Pain Location Details mid cervical Intensity 3 Scale Used worst:8/10 Description Aching,Cramping,Sharp,Spasm Frequency Daily Pain Aggravating Factors ADL's,Exercise,Lifting Other Pain Alleviating Factors stretching reduces symptoms PT-OP-F Manual Assessment Start: 11/03/20 17:49 Freq: Status: Active Protocol: Document 11/04/20 15:22 [facility] (Rec: 11/04/20 16:47 [facility] [id number]) Manual Assessments Soft Tissue Assessment Soft Tissue Mobility Assessment scar significantly adhered, UT & LS, scalenes tight R>L, L>R pec tightness Joint Mobility Assessment Joint Mobility Assessment R 1st rib elevated PT-OP-J Posture/Palpation/Skin Start: 11/03/20 17:49 Freq: Status: Active Protocol: Document 11/04/20 15:22 [facility] (Rec: 11/04/20 16:47 [facility] [id number]) Posture Evaluation John Postural Classification System John Postural Classifications Posterior/Anterior Vertebral Compression Test 1 Comments Posture Comments iknc kyphosis, fwd rounded shoulders , fwd head w/upper cervical ext PT-OP-K Range of Motion Start: 11/03/20 17:49 Freq: Status: Active Protocol: Document 11/04/20 15:22 [facility] (Rec: 11/04/20 16:47 [facility] [id number]) Cervical Spine Range of Motion Cervical Spine Active Degrees Flexion 45 Extension 32 Rotation Left 36 Rotation Right 36 Lateral Flexion Left 38 Lateral Flexion Right 29 ROM Limitations Soft Tissue Tightness,Bony Restriction,Pain PT-OP-L Special Tests Start: 11/03/20 17:49 Freq: Status: Active Protocol: Document 11/04/20 15:22 [facility] (Rec: 11/04/20 16:47 [facility] [id number]) Special Tests Cervical Spine Special Tests Spurling's Test Test Results neg Vertebral Artery Test Results neg Alar Ligament Test Results neg Neural Special Tests- Upper Body Ulnar Nerve Tension Test Results neg R, positive L Radial Nerve Tension Test Results neg L, positive R Median Nerve Tension Test Results positive B PT-OP-M Strength Start: 11/03/20 17:49 Freq: Status: Active Protocol: Document 11/04/20 15:22 [facility] (Rec: 11/04/20 16:47 [facility] [id number]) Shoulder Strength Shoulder Manual Muscle Testing Right Flexion 4+ Good+ Extension 5 Normal Abduction (C5) 4+ Good+ Adduction 5 Normal External Rotation 5 Normal Internal Rotation 5 Normal Horizontal Abduction 5 Normal Horizontal Adduction 5 Normal Left Flexion 4+ Good+ Extension 5 Normal Abduction (C5) 4+ Good+ Adduction 5 Normal External Rotation 5 Normal Internal Rotation 5 Normal Horizontal Abduction 5 Normal Horizontal Adduction 5 Normal Elbow/Forearm Strength Elbow and Forearm Manual Muscle Testing Right Flexion (C6) 4 Good Extension (C7) 5 Normal Pronation 5 Normal Supination 5 Normal Comments pain w/supination Left Flexion (C6) 4 Good Extension (C7) 5 Normal Pronation 5 Normal Supination 5 Normal Hand Technology Advisor/Pinch Strength Hand Strength Right Comments 115#, 100#, 100# technical operations manager strength Left Comments 130#, 105#, 75# technical operations manager strength PT-OP-Q Treatments Start: 11/03/20 17:49 Freq: Status: Active Protocol: Document 11/25/20 14:23 OF (Rec: 11/25/20 14:29 OF [id number]) Therapeutic Exercises Supine Exercises chin tuck (DNF) Supine Exercise Name no lift Resistance AROM Reps/Minutes 5 sec hold x5 Comments cued slow fluid movement, scm relaxed Prone Exercises scap retraction/arm lift/ head lift Prone Exercise Name performed in PT to facilitate alignment (recheck if add to HEP beneficial) Resistance AROM lift and hold adding each after 5 sec hold each Equipment Used forehead on towel roll Reps/Minutes 5 sec hold x5 each added Comments pt advised to add to HEP Sitting Exercises CS SNAGS Sitting Exercise Name rotation, demonstrated already doing ext self Side bilateral Equipment Used towel Reps/Minutes 20 hold x3 UT and lev scap stretch Side bilateral Reps/Minutes 30 x2 each Comments cued can give little over pressure with opposite UE. scap retraction w/ shld ER Side bilateral Resistance Tb #3 Reps/Minutes 3x10 Comments cued tall posture w/ neutral CS, good form Standing Exercises self STMs Standing Exercise Name ball rolling scap complex, MWM post neck, rhomboids Side bilateral Equipment Used racquetball stand at wall Reps/Minutes 3min pec stretch Standing Exercise Name doorway Side bilateral Reps/Minutes 30 sec x3 Manual Therapy Treatment Soft Tissue Mobilization STMs Mobilization Type Myofascial Release Intensity/Depth Moderate Body Position Supine Comments sub occipital release, cervical traction, manual, pt educated upon assist from family for gentle ROM Self-Care/Home Management Treatment Education Patient Education Body Mechanics,Home Exercise Program,Pain Management Other Education pt again educated upon HEP daily to improve symptoms PT-OP-T Assessment and Plan Start: 11/03/20 17:49 Freq: Status: Active Protocol: Document 11/25/20 14:23 OF (Rec: 11/25/20 14:29 OF [id number]) Physical Therapy Assessment Rehab Potential Rehabilitation Potential Good Evaluation Complexity Number of Personal Factors/Comorbidities 1-2 Number of Body Systems Impaired 1-2 Clinical Presentation at Evaluation Evolving Impairments Impairments Pain,ROM,Soft Tissue Mobility, Strength Progress Towards Goals Progress Towards Goals Slow Progress due to Activity Tolerance,Slow Progress due to Attendance Issues,Slow Progress due to Medical Issues Assessment Summary Assessment Pt responds well again to manual therapy. When it comes time to review HEP exercises, pt is 50% accurate with HEP. He states he has not obtained ball for STM, states he will this week. Pt advised to order online if it is difficult to locate a tennis/raquetball. He has improved tolerance for therex, but would benefit from a more focused approach outside of skilled therapy.
--- NOTE | 2020-11-30 17:29 | PT.OTN ---
Current Diagnoses Spondylosis without myelopathy or radiculopathy, cervical region (11/30/20) Pain in right hand (11/30/20) Pain in left hand (11/30/20) Abnormal posture (11/30/20) Weakness (11/30/20) Physical Therapy Treatment Note PT-OP-A Visit Information Start: 11/03/20 17:49 Freq: Status: Active Protocol: Document 11/30/20 16:45 MA (Rec: 11/30/20 17:29 MA [id number]) Out-Patient Physical Therapy Visit Information Visit Information Visit Type Treatment Note Visit Start Time 16:45 Visit Stop Time 17:25 Total Visit Minutes 40 Visit Number 5 Number of PERSONNEL GENERALIST MANAGER Visits 1 PT-OP-B Current Condition Start: 11/03/20 17:49 Freq: Status: Active Protocol: Document 11/04/20 15:22 [facility] (Rec: 11/04/20 16:47 [facility] [id number]) Current Condition History of Current Condition Onset Date 13 year old Current Complaints neck pain, arm pain, MENDEZ History of Current Condition Pt reports his last surgery helped his legs (had pain in legs & difficulty walking) and that got better but not his arms. Pt just had a EMG done at [facility] and they told him C5 -8 was messed up mostly on L and some on R. His MDs have told him he has DDD & arthritis. Pt reprots pain in neck started at 13 playing football (he was ramming his head into other players-no specific injury but just noticed neck bothering him then). It just got worse as he got older. Pt got an injection 4-5 years ago and has 3-4 of them over last decade but none have helped. He is supposed ot schedule to get an injection soon. Pt reports this is the first time that the MD thinks that degernation is causing the nerve symptoms. Pt reports he did PT after last surgery and legs got better but neck and arms never got better. Pt reports pain is about the same since when he last got surgery. 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 Pt reports hands don't wrok well so things take him twice as long. denies numbness tingling or lightheadness or dizziness Prior Treatments and Tests surgeries, injections , C5-6 ACDF over 11 years ago, LC6-7, C7-T1 laminotomy/foraminotomy and R C4-5 and C5-6 laminectomy and foraminotomy Future Testing and Treatments Planned Dr. Rivas doing injection Treatment Goals Patient/Caregiver Goals return to work, be able to play catch w/son w/o hurting himself (never has d/t pain), B carpel tunnel release Personal Factors Other Personal Factors That May Effect neck pain, MENDEZ, depression, HTN Therapy/Recovery , 2 neck sugeries, Appy PT-OP-C Subjective Start: 11/03/20 17:49 Freq: Status: Active Protocol: Document 11/30/20 16:45 MA (Rec: 11/30/20 17:29 MA [id number]) OP-PT Subjective Patient Comments Patient Comments Pt feels he has not had any of his usual bad head aches since starting therapy PT-OP-F Manual Assessment Start: 11/03/20 17:49 Freq: Status: Active Protocol: Document 11/04/20 15:22 [facility] (Rec: 11/04/20 16:47 [facility] [id number]) Manual Assessments Soft Tissue Assessment Soft Tissue Mobility Assessment scar significantly adhered, UT & LS, scalenes tight R>L, L>R pec tightness Joint Mobility Assessment Joint Mobility Assessment R 1st rib elevated PT-OP-J Posture/Palpation/Skin Start: 11/03/20 17:49 Freq: Status: Active Protocol: Document 11/04/20 15:22 [facility] (Rec: 11/04/20 16:47 [facility] [id number]) Posture Evaluation [facility] Postural Classification System [facility] Postural Classifications Posterior/Anterior Vertebral Compression Test 1 Comments Posture Comments iknc kyphosis, fwd rounded shoulders , fwd head w/upper cervical ext PT-OP-K Range of Motion Start: 11/03/20 17:49 Freq: Status: Active Protocol: Document 11/04/20 15:22 [facility] (Rec: 11/04/20 16:47 [facility] [id number]) Cervical Spine Range of Motion Cervical Spine Active Degrees Flexion 45 Extension 32 Rotation Left 36 Rotation Right 36 Lateral Flexion Left 38 Lateral Flexion Right 29 ROM Limitations Soft Tissue Tightness,Bony Restriction,Pain PT-OP-L Special Tests Start: 11/03/20 17:49 Freq: Status: Active Protocol: Document 11/04/20 15:22 [facility] (Rec: 11/04/20 16:47 [facility] [id number]) Special Tests Cervical Spine Special Tests Spurling's Test Test Results neg Vertebral Artery Test Results neg Alar Ligament Test Results neg Neural Special Tests- Upper Body Ulnar Nerve Tension Test Results neg R, positive L Radial Nerve Tension Test Results neg L, positive R Median Nerve Tension Test Results positive B PT-OP-M Strength Start: 11/03/20 17:49 Freq: Status: Active Protocol: Document 11/04/20 15:22 [facility] (Rec: 11/04/20 16:47 [facility] [id number]) Shoulder Strength Shoulder Manual Muscle Testing Right Flexion 4+ Good+ Extension 5 Normal Abduction (C5) 4+ Good+ Adduction 5 Normal External Rotation 5 Normal Internal Rotation 5 Normal Horizontal Abduction 5 Normal Horizontal Adduction 5 Normal Left Flexion 4+ Good+ Extension 5 Normal Abduction (C5) 4+ Good+ Adduction 5 Normal External Rotation 5 Normal Internal Rotation 5 Normal Horizontal Abduction 5 Normal Horizontal Adduction 5 Normal Elbow/Forearm Strength Elbow and Forearm Manual Muscle Testing Right Flexion (C6) 4 Good Extension (C7) 5 Normal Pronation 5 Normal Supination 5 Normal Comments pain w/supination Left Flexion (C6) 4 Good Extension (C7) 5 Normal Pronation 5 Normal Supination 5 Normal Hand Travel Manager/Pinch Strength Hand Strength Right Comments 115#, 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#, 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# tax collector strength Left Comments 130#, 105#, 75# tax collector strength PT-OP-Q Treatments Start: 11/03/20 17:49 Freq: Status: Active Protocol: Document 11/30/20 16:45 MA (Rec: 11/30/20 17:29 MA [id number]) Therapeutic Exercises Supine Exercises Foam Roller Supine Exercise Name Pec stretch-horizontal abd, shd flex focusing on core for posture Equipment Used 1/2 roller Reps/Minutes 10x 10 sec hold chin tuck (DNF) Supine Exercise Name no lift Resistance AROM Reps/Minutes 5 sec hold x10 Comments cued slow fluid movement, scm relaxed Sitting Exercises CS SNAGS Sitting Exercise Name rotation, demonstrated already doing ext self Side bilateral Equipment Used towel Reps/Minutes 20 hold x3 UT and lev scap stretch Side bilateral Reps/Minutes 30 x2 each Comments cued can give little over pressure with opposite UE. scap retraction w/ shld ER Side bilateral Resistance Tb #3 Reps/Minutes 3x10 Comments cued tall posture w/ neutral CS, good form Standing Exercises Wall Posture Reps/Minutes 5x10 sec hold Comments cues for keeping spine against wall self STMs Standing Exercise Name ball rolling scap complex, MWM post neck, rhomboids Side bilateral Equipment Used tennis ball stand at wall Reps/Minutes 3min pec stretch Standing Exercise Name doorway Side bilateral Reps/Minutes 30 sec x3 Manual Therapy Treatment Soft Tissue Mobilization STMs Body Location UT, Lev scap, suboccipital release Mobilization Type Myofascial Release Intensity/Depth Moderate Body Position Supine Comments sub occipital release, cervical traction, manual Manual Traction Cervical Body Position Supine Reps/Duration 2x60 sec PT-OP-T Assessment and Plan Start: 11/03/20 17:49 Freq: Status: Active Protocol: Document 11/30/20 16:45 MA (Rec: 11/30/20 17:29 MA [id number]) Physical Therapy Assessment Goals activities Usp Goal (LTG) 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 LTG Duration 01/04/21 ROM Usp Goal (LTG) pt will improve neck ROM for rotations by at least 20 deg to improve ability to turn when driving. LTG Duration 01/04/21 strength Short Term Goal (STG) pt will be indep with HEP. 11/06/20: Initiated: DNF, scap retraction w/ shld ER TB, pec/ UT/ lev scap stretching, CS rotation and ext SNAGS, self STMs using theracane/ racquetball. STG Duration 12/05/20 Mail Room Goal (LTG) Pt will score 5/5 on EFTto show imrpoved scap and core stabiltiy w/force applied to his system along w/normal tax collector strength for his age w/3 trials. LTG Duration 01/04/21 NDI Impairment 2750 Short Term Goal (STG) Pt will imrpove NDI to at least 22/50 to show improved functional ability. STG Duration 12/05/20 Usp Goal (LTG) Pt will imrpove NDI to at least 12/50 to show improved functional ability. LTG Duration 01/04/21 Assessment Summary Assessment Pt continues to have good response to manual therapy. He has not had any major head aches since starting therapy. He continues to show inconsistency with HEP and needs cues for all exercises for proper positioning. Pt admits he still has not bought a tennis ball for STM even though he likes using it in therapy. Added supine foam roller pec stretch and shd flex with emphasis on core tighening to keep spine against roller to HEP. Physical Therapy Plan Frequency and Duration Frequency of Treatment 1-2x.week Duration of Treatment 3 months Plan of Care Start Date 11/04/20 Plan of Care End Date 02/04/21 Therapeutic Interventions Therapeutic Interventions Aquatic Therapy,Balance Training,Gait Training,Home Exercise Program,Joint Mobilizations,Manual Therapy, Neuromuscular Re-education, Patient/Caregiver Education, Self-Care/Home Management,Soft Tissue Mobilization,Taping, Therapeutic Activities, Therapeutic Exercises Modalities Cold Pack/Ice Massage,Electric Stimulation,Hot Packs, Ultrasound Next Visit Focus/Plan Next Note Type Treatment Note Next Visit Plan Review new HEP exercises and continue working on wall posture. Continue to educate on proper technique for levator stretch. Manual soft tissue to scar & cervical mm, scap PNF
--- NOTE | 2020-12-02 15:38 | PT.OTN ---
Current Diagnoses Spondylosis without myelopathy or radiculopathy, cervical region (12/02/20) Pain in right hand (12/02/20) Pain in left hand (12/02/20) Abnormal posture (12/02/20) Weakness (12/02/20) Physical Therapy Treatment Note PT-OP-A Visit Information Start: 11/03/20 17:49 Freq: Status: Active Protocol: Document 12/02/20 14:23 OF (Rec: 12/02/20 15:37 OF [id number]) Out-Patient Physical Therapy Visit Information Visit Information Visit Type Treatment Note Visit Start Time 13:43 Visit Stop Time 14:23 Total Visit Minutes 40 Visit Number 6 PT-OP-B Current Condition Start: 11/03/20 17:49 Freq: Status: Active Protocol: Document 11/04/20 15:22 [facility] (Rec: 11/04/20 16:47 [facility] [id number]) Current Condition History of Current Condition Onset Date 13 year old Current Complaints neck pain, arm pain, MENDEZ History of Current Condition Pt reports his last surgery helped his legs (had pain in legs & difficulty walking) and that got better but not his arms. Pt just had a EMG done at [facility] and they told him C5 -8 was messed up mostly on L and some on R. His MDs have told him he has DDD & arthritis. Pt reprots pain in neck started at 13 playing football (he was ramming his head into other players-no specific injury but just noticed neck bothering him then). It just got worse as he got older. Pt got an injection 4-5 years ago and has 3-4 of them over last decade but none have helped. He is supposed ot schedule to get an injection soon. Pt reports this is the first time that the MD thinks that degernation is causing the nerve symptoms. Pt reports he did PT after last surgery and legs got better but neck and arms never got better. Pt reports pain is about the same since when he last got surgery. 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 Pt reports he hasn't been working at all for the past year but its been 3-4 years since he was working part time. Pt reports hands don't wrok well so things take him twice as long. denies numbness tingling or lightheadness or dizziness Prior Treatments and Tests surgeries, injections , C5-6 ACDF over 11 years ago, LC6-7, C7-T1 laminotomy/foraminotomy and R C4-5 and C5-6 laminectomy and foraminotomy Future Testing and Treatments Planned Dr. Rivas doing injection Treatment Goals Patient/Caregiver Goals return to work, be able to play catch w/son w/o hurting himself (never has d/t pain), B carpel tunnel release Personal Factors Other Personal Factors That May Effect neck pain, MENDEZ, depression, HTN Therapy/Recovery , 2 neck sugeries, Appy PT-OP-C Subjective Start: 11/03/20 17:49 Freq: Status: Active Protocol: Document 12/02/20 14:23 OF (Rec: 12/02/20 15:37 OF [id number]) OP-PT Subjective Patient Comments Patient Comments Pt feels he has improved HEP performance Patient Reported Progress Improving OP-PT Pain Assessment Location neck Pain Location Details mid cervical Intensity 2 Scale Used worst:8/10 Description Aching,Cramping,Sharp,Spasm Frequency Daily Pain Aggravating Factors ADL's,Exercise,Lifting Pain Alleviating Factors Inactivity Other Pain Alleviating Factors stretching reduces symptoms PT-OP-F Manual Assessment Start: 11/03/20 17:49 Freq: Status: Active Protocol: Document 11/04/20 15:22 [facility] (Rec: 11/04/20 16:47 [facility] [id number]) Manual Assessments Soft Tissue Assessment Soft Tissue Mobility Assessment scar significantly adhered, UT & LS, scalenes tight R>L, L>R pec tightness Joint Mobility Assessment Joint Mobility Assessment R 1st rib elevated PT-OP-J Posture/Palpation/Skin Start: 11/03/20 17:49 Freq: Status: Active Protocol: Document 11/04/20 15:22 [facility] (Rec: 11/04/20 16:47 [facility] [id number]) Posture Evaluation [facility] Postural Classification System [facility] Postural Classifications Posterior/Anterior Vertebral Compression Test 1 Comments Posture Comments iknc kyphosis, fwd rounded shoulders , fwd head w/upper cervical ext PT-OP-K Range of Motion Start: 11/03/20 17:49 Freq: Status: Active Protocol: Document 11/04/20 15:22 [facility] (Rec: 11/04/20 16:47 [facility] [id number]) Cervical Spine Range of Motion Cervical Spine Active Degrees Flexion 45 Extension 32 Rotation Left 36 Rotation Right 36 Lateral Flexion Left 38 Lateral Flexion Right 29 ROM Limitations Soft Tissue Tightness,Bony Restriction,Pain PT-OP-L Special Tests Start: 11/03/20 17:49 Freq: Status: Active Protocol: Document 11/04/20 15:22 [facility] (Rec: 11/04/20 16:47 [facility] [id number]) Special Tests Cervical Spine Special Tests Spurling's Test Test Results neg Vertebral Artery Test Results neg Alar Ligament Test Results neg Neural Special Tests- Upper Body Ulnar Nerve Tension Test Results neg R, positive L Radial Nerve Tension Test Results neg L, positive R Median Nerve Tension Test Results positive B PT-OP-M Strength Start: 11/03/20 17:49 Freq: Status: Active Protocol: Document 11/04/20 15:22 [facility] (Rec: 11/04/20 16:47 [facility] [id number]) Shoulder Strength Shoulder Manual Muscle Testing Right Flexion 4+ Good+ Extension 5 Normal Abduction (C5) 4+ Good+ Adduction 5 Normal External Rotation 5 Normal Internal Rotation 5 Normal Horizontal Abduction 5 Normal Horizontal Adduction 5 Normal Left Flexion 4+ Good+ Extension 5 Normal Abduction (C5) 4+ Good+ Adduction 5 Normal External Rotation 5 Normal Internal Rotation 5 Normal Horizontal Abduction 5 Normal Horizontal Adduction 5 Normal Elbow/Forearm Strength Elbow and Forearm Manual Muscle Testing Right Flexion (C6) 4 Good Extension (C7) 5 Normal Pronation 5 Normal Supination 5 Normal Comments pain w/supination Left Flexion (C6) 4 Good Extension (C7) 5 Normal Pronation 5 Normal Supination 5 Normal Hand Camp Tender/Pinch Strength Hand Strength Right Comments 115#, 100#, 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# optical effects layout person strength Left Comments 130#, 105#, 75# optical effects layout person strength PT-OP-Q Treatments Start: 11/03/20 17:49 Freq: Status: Active Protocol: Document 12/02/20 14:23 OF (Rec: 12/02/20 15:37 OF [email or web address]) Therapeutic Exercises Supine Exercises Foam Roller Supine Exercise Name Pec stretch-horizontal abd, shd flex focusing on core for posture Equipment Used 1/2 roller Reps/Minutes 10x 10 sec hold Comments cues for proper roller placement chin tuck (DNF) Supine Exercise Name no lift Resistance AROM Reps/Minutes 5 sec hold x10 Comments cued slow fluid movement, scm relaxed Sitting Exercises CS SNAGS Sitting Exercise Name rotation, demonstrated already doing ext self Side bilateral Equipment Used towel Reps/Minutes 20 hold x3 UT and lev scap stretch Side bilateral Reps/Minutes 30 x2 each Comments cued can give little over pressure with opposite UE. Standing Exercises trunk rotation Side bilateral Resistance TB 3 Comments 3x10, cues for using core for rotation standing rows Standing Exercise Name back of chair for support Side bilateral Resistance 8# Reps/Minutes 3x10 Comments cues for shldr retraction self STMs Standing Exercise Name ball rolling scap complex, MWM post neck, rhomboids Side bilateral Equipment Used tennis ball stand at wall Reps/Minutes 3min pec stretch Standing Exercise Name doorway Side bilateral Reps/Minutes 30 sec x3 Self-Care/Home Management Treatment Education Patient Education Body Mechanics,Home Exercise Program,Pain Management PT-OP-T Assessment and Plan Start: 11/03/20 17:49 Freq: Status: Active Protocol: Document 12/02/20 14:23 OF (Rec: 12/02/20 15:37 OF [email or web address]) Physical Therapy Assessment Rehab Potential Rehabilitation Potential Good Evaluation Complexity Number of Personal Factors/Comorbidities 1-2 Number of Body Systems Impaired 1-2 Clinical Presentation at Evaluation Stable Impairments Impairments Pain,Strength Progress Towards Goals Progress Towards Goals Progressing Toward Goals Assessment Summary Assessment Maverick has improved his performance with HEP, progressed excercises today. He is agreeable to HEP performance with new excercises. Physical Therapy Plan Frequency and Duration Frequency of Treatment 1-2x.week Next Visit Focus/Plan Next Note Type Treatment Note Next Visit Plan Review new HEP exercises and continue working on wall posture. Continue to educate on proper technique for levator stretch. Assess trunk rotation with band, 1/2 standing row
--- NOTE | 2020-12-16 13:47 | PT.OTN ---
Current Diagnoses Spondylosis without myelopathy or radiculopathy, cervical region (12/16/20) Pain in right hand (12/16/20) Pain in left hand (12/16/20) Abnormal posture (12/16/20) Weakness (12/16/20) Physical Therapy Treatment Note PT-OP-A Visit Information Start: 11/03/20 17:49 Freq: Status: Active Protocol: Document 12/16/20 12:59 [facility] (Rec: 12/16/20 13:47 [facility] [id number]) Out-Patient Physical Therapy Visit Information Visit Information Visit Type Treatment Note Visit Start Time 13:01 Visit Stop Time 13:42 Total Visit Minutes 41 Visit Number 7 Number of SUPPLY ROOM CLERK Visits 0 PT-OP-B Current Condition Start: 11/03/20 17:49 Freq: Status: Active Protocol: Document 11/04/20 15:22 [facility] (Rec: 11/04/20 16:47 [facility] [id number]) Current Condition History of Current Condition Onset Date 13 year old Current Complaints neck pain, arm pain, MENDEZ History of Current Condition Pt reports his last surgery helped his legs (had pain in legs & difficulty walking) and that got better but not his arms. Pt just had a EMG done at [facility] and they told him C5 -8 was messed up mostly on L and some on R. His MDs have told him he has DDD & arthritis. Pt reprots pain in neck started at 13 playing football (he was ramming his head into other players-no specific injury but just noticed neck bothering him then). It just got worse as he got older. Pt got an injection 4-5 years ago and has 3-4 of them over last decade but none have helped. He is supposed ot schedule to get an injection soon. Pt reports this is the first time that the MD thinks that degernation is causing the nerve symptoms. Pt reports he did PT after last surgery and legs got better but neck and arms never got better. Pt reports pain is about the same since when he last got surgery. 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 Pt reports hands don't wrok well so things take him twice as long. denies numbness tingling or lightheadness or dizziness Prior Treatments and Tests surgeries, injections , C5-6 ACDF over 11 years ago, LC6-7, C7-T1 laminotomy/foraminotomy and R C4-5 and C5-6 laminectomy and foraminotomy Future Testing and Treatments Planned Dr. Rivas doing injection Treatment Goals Patient/Caregiver Goals return to work, be able to play catch w/son w/o hurting himself (never has d/t pain), B carpel tunnel release Personal Factors Other Personal Factors That May Effect neck pain, MENDEZ, depression, HTN Therapy/Recovery , 2 neck sugeries, Appy PT-OP-C Subjective Start: 11/03/20 17:49 Freq: Status: Active Protocol: Document 12/16/20 12:59 [facility] (Rec: 12/16/20 13:47 [facility] [id number]) OP-PT Subjective Patient Comments Patient Comments Today neck all the way down back is tight. Notes he has had less MENDEZ since starting therapy. Arm is feeling pretty good today. Notes he has been good about his exercises except the last couple days PT-OP-F Manual Assessment Start: 11/03/20 17:49 Freq: Status: Active Protocol: Document 11/04/20 15:22 [facility] (Rec: 11/04/20 16:47 [facility] [id number]) Manual Assessments Soft Tissue Assessment Soft Tissue Mobility Assessment scar significantly adhered, UT & LS, scalenes tight R>L, L>R pec tightness Joint Mobility Assessment Joint Mobility Assessment R 1st rib elevated PT-OP-J Posture/Palpation/Skin Start: 11/03/20 17:49 Freq: Status: Active Protocol: Document 11/04/20 15:22 [facility] (Rec: 11/04/20 16:47 [facility] [id number]) Posture Evaluation [facility] Postural Classification System [facility] Postural Classifications Posterior/Anterior Vertebral Compression Test 1 Comments Posture Comments iknc kyphosis, fwd rounded shoulders , fwd head w/upper cervical ext PT-OP-K Range of Motion Start: 11/03/20 17:49 Freq: Status: Active Protocol: Document 11/04/20 15:22 [facility] (Rec: 11/04/20 16:47 [facility] [id number]) Cervical Spine Range of Motion Cervical Spine Active Degrees Flexion 45 Extension 32 Rotation Left 36 Rotation Right 36 Lateral Flexion Left 38 Lateral Flexion Right 29 ROM Limitations Soft Tissue Tightness,Bony Restriction,Pain PT-OP-L Special Tests Start: 11/03/20 17:49 Freq: Status: Active Protocol: Document 11/04/20 15:22 [facility] (Rec: 11/04/20 16:47 [facility] [id number]) Special Tests Cervical Spine Special Tests Spurling's Test Test Results neg Vertebral Artery Test Results neg Alar Ligament Test Results neg Neural Special Tests- Upper Body Ulnar Nerve Tension Test Results neg R, positive L Radial Nerve Tension Test Results neg L, positive R Median Nerve Tension Test Results positive B PT-OP-M Strength Start: 11/03/20 17:49 Freq: Status: Active Protocol: Document 11/04/20 15:22 [facility] (Rec: 11/04/20 16:47 [facility] [id number]) Shoulder Strength Shoulder Manual Muscle Testing Right Flexion 4+ Good+ Extension 5 Normal Abduction (C5) 4+ Good+ Adduction 5 Normal External Rotation 5 Normal Internal Rotation 5 Normal Horizontal Abduction 5 Normal Horizontal Adduction 5 Normal Left Flexion 4+ Good+ Extension 5 Normal Abduction (C5) 4+ Good+ Adduction 5 Normal External Rotation 5 Normal Internal Rotation 5 Normal Horizontal Abduction 5 Normal Horizontal Adduction 5 Normal Elbow/Forearm Strength Elbow and Forearm Manual Muscle Testing Right Flexion (C6) 4 Good Extension (C7) 5 Normal Pronation 5 Normal Supination 5 Normal Comments pain w/supination Left Flexion (C6) 4 Good Extension (C7) 5 Normal Pronation 5 Normal Supination 5 Normal Hand Water Resources Technical Officer/Pinch Strength Hand Strength Right Comments 115#, 100#, 100# paper box maker strength Left Comments 130#, 105#, 75# paper box maker strength PT-OP-Q Treatments Start: 11/03/20 17:49 Freq: Status: Active Protocol: Document 12/16/20 12:59 [facility] (Rec: 12/16/20 13:47 [facility] [id number]) Therapeutic Exercises Supine Exercises Foam Roller Supine Exercise Name Habd & flex Equipment Used full foam roll Reps/Minutes 10 chin tuck (DNF) Supine Exercise Name no lift Resistance AROM Reps/Minutes 10 sec hold x5 Sitting Exercises UT and lev scap stretch Side bilateral Reps/Minutes 30 each Comments cued can give little over pressure with opposite UE. scap retraction w/ shld ER Side bilateral Resistance Tb #3 Reps/Minutes 15 Standing Exercises standing rows Standing Exercise Name back of chair for support Side bilateral Resistance 8# Reps/Minutes 15 Comments cues for shldr retraction Wall Posture Standing Exercise Name w/Habd at 90/90 position Reps/Minutes 10 Comments cues for keeping spine against wall pec stretch Standing Exercise Name corner Side bilateral Reps/Minutes 30 sec Manual Therapy Treatment Soft Tissue Mobilization STMs Body Location UT, Lev scap, suboccipital release, scalenes, SCMs Mobilization Type Myofascial Release Intensity/Depth Moderate Body Position Supine Joint Mobilizations 1st rib Joint R Direction inf FM PT-OP-T Assessment and Plan Start: 11/03/20 17:49 Freq: Status: Active Protocol: Document 12/16/20 12:59 [facility] (Rec: 12/16/20 13:47 [facility] [id number]) Physical Therapy Assessment Goals activities Alf Goal (LTG) 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 LTG Duration 01/04/21 ROM Alf Goal (LTG) pt will improve neck ROM for rotations by at least 20 deg to improve ability to turn when driving. LTG Duration 01/04/21 strength Short Term Goal (STG) pt will be indep with HEP. 11/06/20: Initiated: DNF, scap retraction w/ shld ER TB, pec/ UT/ lev scap stretching, CS rotation and ext SNAGS, self STMs using theracane/ racquetball. STG Duration 12/05/20 Marble Setter Goal (LTG) Pt will score 5/5 on EFTto show imrpoved scap and core stabiltiy w/force applied to his system along w/normal paper box maker strength for his age w/3 trials. LTG Duration 01/04/21 NDI Impairment 27/50 Short Term Goal (STG) Pt will imrpove NDI to at least 22/50 to show improved functional ability. STG Duration 12/05/20 Marble Setter Goal (LTG) Pt will imrpove NDI to at least 12/50 to show improved functional ability. LTG Duration 01/04/21 Assessment Summary Assessment Pt did well with HEP exercises and no longer requires signifcant cueing. Able to progress wall posture exercise for inc stretch. Pt reports relief w/manual treatment and improved R rot Physical Therapy Plan Frequency and Duration Frequency of Treatment 1-2x.week Duration of Treatment 3 months Plan of Care Start Date 11/04/20 Plan of Care End Date 02/04/21 Next Visit Focus/Plan Next Note Type Treatment Note Next Visit Plan progress strengthening & thoracic moblity exercises, manual for improved rang
--- NOTE | 2020-12-23 13:45 | PT.OTN ---
Current Diagnoses Spondylosis without myelopathy or radiculopathy, cervical region (12/23/20) Pain in right hand (12/23/20) Pain in left hand (12/23/20) Abnormal posture (12/23/20) Weakness (12/23/20) Physical Therapy Treatment Note PT-OP-A Visit Information Start: 11/03/20 17:49 Freq: Status: Active Protocol: Document 12/23/20 13:00 [facility] (Rec: 12/23/20 13:44 [facility] [id number]) Out-Patient Physical Therapy Visit Information Visit Information Visit Type Treatment Note Visit Start Time 13:02 Visit Stop Time 13:41 Total Visit Minutes 39 Visit Number 8 Number of BACK FEEDER PLYWOOD LAYUP LINE Visits 0 PT-OP-B Current Condition Start: 11/03/20 17:49 Freq: Status: Active Protocol: Document 11/04/20 15:22 [facility] (Rec: 11/04/20 16:47 [facility] [id number]) Current Condition History of Current Condition Onset Date 13 year old Current Complaints neck pain, arm pain, MENDEZ History of Current Condition Pt reports his last surgery helped his legs (had pain in legs & difficulty walking) and that got better but not his arms. Pt just had a EMG done at [facility] and they told him C5 -8 was messed up mostly on L and some on R. His MDs have told him he has DDD & arthritis. Pt reprots pain in neck started at 13 playing football (he was ramming his head into other players-no specific injury but just noticed neck bothering him then). It just got worse as he got older. Pt got an injection 4-5 years ago and has 3-4 of them over last decade but none have helped. He is supposed ot schedule to get an injection soon. Pt reports this is the first time that the MD thinks that degernation is causing the nerve symptoms. Pt reports he did PT after last surgery and legs got better but neck and arms never got better. Pt reports pain is about the same since when he last got surgery. 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 Pt reports hands don't wrok well so things take him twice as long. denies numbness tingling or lightheadness or dizziness Prior Treatments and Tests surgeries, injections , C5-6 ACDF over 11 years ago, LC6-7, C7-T1 laminotomy/foraminotomy and R C4-5 and C5-6 laminectomy and foraminotomy Future Testing and Treatments Planned Dr. Rivas doing injection Treatment Goals Patient/Caregiver Goals return to work, be able to play catch w/son w/o hurting himself (never has d/t pain), B carpel tunnel release Personal Factors Other Personal Factors That May Effect neck pain, MENDEZ, depression, HTN Therapy/Recovery , 2 neck sugeries, Appy PT-OP-C Subjective Start: 11/03/20 17:49 Freq: Status: Active Protocol: Document 12/23/20 13:00 [facility] (Rec: 12/23/20 13:44 [facility] [id number]) OP-PT Subjective Patient Comments Patient Comments Pt reprots 3.10 pain today =. Notes feels like n pinching behind L shoulder blade today. Pt reports he has been doing his stretching recenlty. PT-OP-F Manual Assessment Start: 11/03/20 17:49 Freq: Status: Active Protocol: Document 11/04/20 15:22 [facility] (Rec: 11/04/20 16:47 [facility] [id number]) Manual Assessments Soft Tissue Assessment Soft Tissue Mobility Assessment scar significantly adhered, UT & LS, scalenes tight R>L, L>R pec tightness Joint Mobility Assessment Joint Mobility Assessment R 1st rib elevated PT-OP-J Posture/Palpation/Skin Start: 11/03/20 17:49 Freq: Status: Active Protocol: Document 11/04/20 15:22 [facility] (Rec: 11/04/20 16:47 [facility] [id number]) Posture Evaluation [facility] Postural Classification System [facility] Postural Classifications Posterior/Anterior Vertebral Compression Test 1 Comments Posture Comments iknc kyphosis, fwd rounded shoulders , fwd head w/upper cervical ext PT-OP-K Range of Motion Start: 11/03/20 17:49 Freq: Status: Active Protocol: Document 11/04/20 15:22 [facility] (Rec: 11/04/20 16:47 [facility] [id number]) Cervical Spine Range of Motion Cervical Spine Active Degrees Flexion 45 Extension 32 Rotation Left 36 Rotation Right 36 Lateral Flexion Left 38 Lateral Flexion Right 29 ROM Limitations Soft Tissue Tightness,Bony Restriction,Pain PT-OP-L Special Tests Start: 11/03/20 17:49 Freq: Status: Active Protocol: Document 11/04/20 15:22 [facility] (Rec: 11/04/20 16:47 [facility] [id number]) Special Tests Cervical Spine Special Tests Spurling's Test Test Results neg Vertebral Artery Test Results neg Alar Ligament Test Results neg Neural Special Tests- Upper Body Ulnar Nerve Tension Test Results neg R, positive L Radial Nerve Tension Test Results neg L, positive R Median Nerve Tension Test Results positive B PT-OP-M Strength Start: 11/03/20 17:49 Freq: Status: Active Protocol: Document 11/04/20 15:22 [facility] (Rec: 11/04/20 16:47 [facility] [id number]) Shoulder Strength Shoulder Manual Muscle Testing Right Flexion 4+ Good+ Extension 5 Normal Abduction (C5) 4+ Good+ Adduction 5 Normal External Rotation 5 Normal Internal Rotation 5 Normal Horizontal Abduction 5 Normal Horizontal Adduction 5 Normal Left Flexion 4+ Good+ Extension 5 Normal Abduction (C5) 4+ Good+ Adduction 5 Normal External Rotation 5 Normal Internal Rotation 5 Normal Horizontal Abduction 5 Normal Horizontal Adduction 5 Normal Elbow/Forearm Strength Elbow and Forearm Manual Muscle Testing Right Flexion (C6) 4 Good Extension (C7) 5 Normal Pronation 5 Normal Supination 5 Normal Comments pain w/supination Left Flexion (C6) 4 Good Extension (C7) 5 Normal Pronation 5 Normal Supination 5 Normal Hand International Affairs Vice President/Pinch Strength Hand Strength Right Comments 115#, 100#, 100# hairspring studder strength Left Comments 130#, 105#, 75# hairspring studder strength PT-OP-Q Treatments Start: 11/03/20 17:49 Freq: Status: Active Protocol: Document 12/23/20 13:00 [facility] (Rec: 12/23/20 13:44 [facility] [id number]) Therapeutic Exercises Prone Exercises Habd Prone Exercise Name over green tball Side bilateral Equipment Used 2# B Reps/Minutes 2x10 ext Prone Exercise Name over green tball Side bilateral Equipment Used 2# B Reps/Minutes 2x10 Other Exercises quadruped Other Exercise Name 1. alt UE lift 2. alt LE lift Side bilateral Reps/Minutes 10 ea cat/camel Side bilateral Reps/Minutes 10 thomas pose Other Exercise Name hands on tball 1. fwd 2. side Side bilateral Reps/Minutes 1.30 secx2 2. 30 sec Manual Therapy Treatment Soft Tissue Mobilization STMs Body Location UT, Lev scap, suboccipital release, scalenes, SCMs Mobilization Type Myofascial Release,Rolling, Strumming Intensity/Depth Moderate Body Position Sidelying Comments w/ant elevation/post dep Joint Mobilizations thoracic Joint T3 Direction PA 1st rib Joint R Direction inf FM PT-OP-T Assessment and Plan Start: 11/03/20 17:49 Freq: Status: Active Protocol: Document 12/23/20 13:00 [facility] (Rec: 12/23/20 13:44 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 LTG Duration 01/04/21 ROM Photogrammetric Technician Goal (LTG) pt will improve neck ROM for rotations by at least 20 deg to improve ability to turn when driving. LTG Duration 01/04/21 strength Short Term Goal (STG) pt will be indep with HEP. 11/06/20: Initiated: DNF, scap retraction w/ shld ER TB, pec/ UT/ lev scap stretching, CS rotation and ext SNAGS, self STMs using theracane/ racquetball. STG Duration 12/05/20 Retirement Goal (LTG) Pt will score 5/5 on EFTto show imrpoved scap and core stabiltiy w/force applied to his system along w/normal hairspring studder strength for his age w/3 trials. LTG Duration 01/04/21 NDI Impairment 27/50 Short Term Goal (STG) Pt will imrpove NDI to at least 22/50 to show improved functional ability. STG Duration 12/05/20 Photogrammetric Technician Goal (LTG) Pt will imrpove NDI to at least 12/50 to show improved functional ability. LTG Duration 01/04/21 Assessment Summary Assessment Pt required frequent cuieng for neutral head position over ball and in quadruped. He tends to ext neck and let it fall fwd. Improved scap depression after manual treatment Physical Therapy Plan Frequency and Duration Frequency of Treatment 1-2x.week Duration of Treatment 3 months Plan of Care Start Date 11/04/20 Plan of Care End Date 02/04/21 Next Visit Focus/Plan Next Note Type Treatment Note Next Visit Plan progress strengthening & thoracic moblity exercises, manual for improved range; review exercises from last session
--- NOTE | 2020-12-30 13:44 | PT.OTN ---
Current Diagnoses Spondylosis without myelopathy or radiculopathy, cervical region (12/30/20) Pain in right hand (12/30/20) Pain in left hand (12/30/20) Abnormal posture (12/30/20) Weakness (12/30/20) Physical Therapy Treatment Note PT-OP-A Visit Information Start: 11/03/20 17:49 Freq: Status: Active Protocol: Document 12/30/20 13:00 [facility] (Rec: 12/30/20 13:44 [facility] [id number]) Out-Patient Physical Therapy Visit Information Visit Information Visit Type Treatment Note Visit Start Time 13:01 Visit Stop Time 13:41 Total Visit Minutes 40 Visit Number 9 Number of JOINER HELPER Visits 0 PT-OP-B Current Condition Start: 11/03/20 17:49 Freq: Status: Active Protocol: Document 11/04/20 15:22 [facility] (Rec: 11/04/20 16:47 [facility] [id number]) Current Condition History of Current Condition Onset Date 13 year old Current Complaints neck pain, arm pain, MENDEZ History of Current Condition Pt reports his last surgery helped his legs (had pain in legs & difficulty walking) and that got better but not his arms. Pt just had a EMG done at [facility] and they told him C5 -8 was messed up mostly on L and some on R. His MDs have told him he has DDD & arthritis. Pt reprots pain in neck started at 13 playing football (he was ramming his head into other players-no specific injury but just noticed neck bothering him then). It just got worse as he got older. Pt got an injection 4-5 years ago and has 3-4 of them over last decade but none have helped. He is supposed ot schedule to get an injection soon. Pt reports this is the first time that the MD thinks that degernation is causing the nerve symptoms. Pt reports he did PT after last surgery and legs got better but neck and arms never got better. Pt reports pain is about the same since when he last got surgery. 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 Pt reports hands don't wrok well so things take him twice as long. denies numbness tingling or lightheadness or dizziness Prior Treatments and Tests surgeries, injections , C5-6 ACDF over 11 years ago, LC6-7, C7-T1 laminotomy/foraminotomy and R C4-5 and C5-6 laminectomy and foraminotomy Future Testing and Treatments Planned Dr. Rivas doing injection Treatment Goals Patient/Caregiver Goals return to work, be able to play catch w/son w/o hurting himself (never has d/t pain), B carpel tunnel release Personal Factors Other Personal Factors That May Effect neck pain, MENDEZ, depression, HTN Therapy/Recovery , 2 neck sugeries, Appy PT-OP-C Subjective Start: 11/03/20 17:49 Freq: Status: Active Protocol: Document 12/30/20 13:00 [facility] (Rec: 12/30/20 13:44 [facility] [id number]) OP-PT Subjective Patient Comments Patient Comments Pt reports back and neck pain have been about the same. Pain in hands still bad. notes MENDEZ have been less though. Pt reports neck pain today 08/19. PT-OP-F Manual Assessment Start: 11/03/20 17:49 Freq: Status: Active Protocol: Document 11/04/20 15:22 [facility] (Rec: 11/04/20 16:47 [facility] [id number]) Manual Assessments Soft Tissue Assessment Soft Tissue Mobility Assessment scar significantly adhered, UT & LS, scalenes tight R>L, L>R pec tightness Joint Mobility Assessment Joint Mobility Assessment R 1st rib elevated PT-OP-J Posture/Palpation/Skin Start: 11/03/20 17:49 Freq: Status: Active Protocol: Document 11/04/20 15:22 [facility] (Rec: 11/04/20 16:47 [facility] [id number]) Posture Evaluation John Postural Classification System John Postural Classifications Posterior/Anterior Vertebral Compression Test 1 Comments Posture Comments iknc kyphosis, fwd rounded shoulders , fwd head w/upper cervical ext PT-OP-K Range of Motion Start: 11/03/20 17:49 Freq: Status: Active Protocol: Document 11/04/20 15:22 [facility] (Rec: 11/04/20 16:47 [facility] [id number]) Cervical Spine Range of Motion Cervical Spine Active Degrees Flexion 45 Extension 32 Rotation Left 36 Rotation Right 36 Lateral Flexion Left 38 Lateral Flexion Right 29 ROM Limitations Soft Tissue Tightness,Bony Restriction,Pain PT-OP-L Special Tests Start: 11/03/20 17:49 Freq: Status: Active Protocol: Document 11/04/20 15:22 [facility] (Rec: 11/04/20 16:47 [facility] [id number]) Special Tests Cervical Spine Special Tests Spurling's Test Test Results neg Vertebral Artery Test Results neg Alar Ligament Test Results neg Neural Special Tests- Upper Body Ulnar Nerve Tension Test Results neg R, positive L Radial Nerve Tension Test Results neg L, positive R Median Nerve Tension Test Results positive B PT-OP-M Strength Start: 11/03/20 17:49 Freq: Status: Active Protocol: Document 11/04/20 15:22 [facility] (Rec: 11/04/20 16:47 [facility] [id number]) Shoulder Strength Shoulder Manual Muscle Testing Right Flexion 4+ Good+ Extension 5 Normal Abduction (C5) 4+ Good+ Adduction 5 Normal External Rotation 5 Normal Internal Rotation 5 Normal Horizontal Abduction 5 Normal Horizontal Adduction 5 Normal Left Flexion 4+ Good+ Extension 5 Normal Abduction (C5) 4+ Good+ Adduction 5 Normal External Rotation 5 Normal Internal Rotation 5 Normal Horizontal Abduction 5 Normal Horizontal Adduction 5 Normal Elbow/Forearm Strength Elbow and Forearm Manual Muscle Testing Right Flexion (C6) 4 Good Extension (C7) 5 Normal Pronation 5 Normal Supination 5 Normal Comments pain w/supination Left Flexion (C6) 4 Good Extension (C7) 5 Normal Pronation 5 Normal Supination 5 Normal Hand Magazine Keeper/Pinch Strength Hand Strength Right Comments 115#, 100#, 100# senior informatica etl developer strength Left Comments 130#, 105#, 75# senior informatica etl developer strength PT-OP-Q Treatments Start: 11/03/20 17:49 Freq: Status: Active Protocol: Document 12/30/20 13:00 [facility] (Rec: 12/30/20 13:44 [facility] [id number]) Therapeutic Exercises Supine Exercises Foam Roller Supine Exercise Name Habd & flex Equipment Used full foam roll Reps/Minutes 10 Prone Exercises ER Prone Exercise Name 90/90 ER Side bilateral Equipment Used 0# Reps/Minutes 2x10 Comments 0ver tball Habd Prone Exercise Name over green tball Side bilateral Equipment Used 2# B Reps/Minutes 2x10 ext Prone Exercise Name over green tball Side bilateral Equipment Used 2# B Reps/Minutes 2x10 Sidelying Exercises open book Side bilateral Reps/Minutes 10 Other Exercises quadruped Other Exercise Name 1. alt UE lift 2. alt LE lift Side bilateral Reps/Minutes 10 ea cat/camel Side bilateral Reps/Minutes 10 thomas pose Other Exercise Name 1. fwd 2. side Side bilateral Reps/Minutes 1.30 sec ea Manual Therapy Treatment Soft Tissue Mobilization STMs Body Location UT, Lev scap, suboccipital release, scalenes, SCMs Mobilization Type Myofascial Release,Rolling, Strumming Intensity/Depth Moderate Comments w/ant elevation/post dep R>L in s/l and supine Joint Mobilizations AC Joint R Direction ventral 1st rib Joint R Direction inf FM PT-OP-T Assessment and Plan Start: 11/03/20 17:49 Freq: Status: Active Protocol: Document 12/30/20 13:00 [facility] (Rec: 12/30/20 13:44 [facility] [id number]) Physical Therapy Assessment Goals activities Senior Living Goal (LTG) 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 LTG Duration 01/04/21 ROM New Order Clerk Goal (LTG) pt will improve neck ROM for rotations by at least 20 deg to improve ability to turn when driving. LTG Duration 01/04/21 strength Short Term Goal (STG) pt will be indep with HEP. 11/06/20: Initiated: DNF, scap retraction w/ shld ER TB, pec/ UT/ lev scap stretching, CS rotation and ext SNAGS, self STMs using theracane/ racquetball. STG Duration 12/05/20 New Order Clerk Goal (LTG) Pt will score 5/5 on EFTto show imrpoved scap and core stabiltiy w/force applied to his system along w/normal senior informatica etl developer strength for his age w/3 trials. LTG Duration 01/04/21 NDI Impairment 27/50 Short Term Goal (STG) Pt will imrpove NDI to at least 22/50 to show improved functional ability. STG Duration 12/05/20 New Order Clerk Goal (LTG) Pt will imrpove NDI to at least 12/50 to show improved functional ability. LTG Duration 01/04/21 Assessment Summary Assessment PT requires cueing w/quadruped for neutral spine position & work on maintaining that position throughout exercises. In prone over ball, nees cueing for set up to neutral to start. Improved ability to scap depress after manual Physical Therapy Plan Frequency and Duration Frequency of Treatment 1-2x.week Duration of Treatment 3 months Plan of Care Start Date 11/04/20 Plan of Care End Date 02/04/21 Next Visit Focus/Plan Next Note Type Treatment Note Next Visit Plan progress strengthening & thoracic moblity exercises, manual for improved range
--- NOTE | 2021-01-06 18:00 | PT.OTN ---
Current Diagnoses Spondylosis without myelopathy or radiculopathy, cervical region (01/06/21) Pain in right hand (01/06/21) Pain in left hand (01/06/21) Abnormal posture (01/06/21) Weakness (01/06/21) Physical Therapy Treatment Note PT-OP-A Visit Information Start: 11/03/20 17:49 Freq: Status: Active Protocol: Document 01/06/21 13:45 [facility] (Rec: 01/06/21 14:32 [facility] [id number]) Out-Patient Physical Therapy Visit Information Visit Information Visit Type Treatment Note Visit Start Time 13:44 Visit Stop Time 14:25 Total Visit Minutes 41 Visit Number 10 Number of INTAKE CLINICIAN Visits 1 PT-OP-B Current Condition Start: 11/03/20 17:49 Freq: Status: Active Protocol: Document 11/04/20 15:22 [facility] (Rec: 11/04/20 16:47 [facility] [id number]) Current Condition History of Current Condition Onset Date 13 year old Current Complaints neck pain, arm pain, MENDEZ History of Current Condition Pt reports his last surgery helped his legs (had pain in legs & difficulty walking) and that got better but not his arms. Pt just had a EMG done at [facility] and they told him C5 -8 was messed up mostly on L and some on R. His MDs have told him he has DDD & arthritis. Pt reprots pain in neck started at 13 playing football (he was ramming his head into other players-no specific injury but just noticed neck bothering him then). It just got worse as he got older. Pt got an injection 4-5 years ago and has 3-4 of them over last decade but none have helped. He is supposed ot schedule to get an injection soon. Pt reports this is the first time that the MD thinks that degernation is causing the nerve symptoms. Pt reports he did PT after last surgery and legs got better but neck and arms never got better. Pt reports pain is about the same since when he last got surgery. 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 Pt reports hands don't wrok well so things take him twice as long. denies numbness tingling or lightheadness or dizziness Prior Treatments and Tests surgeries, injections , C5-6 ACDF over 11 years ago, LC6-7, C7-T1 laminotomy/foraminotomy and R C4-5 and C5-6 laminectomy and foraminotomy Future Testing and Treatments Planned Dr. Rivas doing injection Treatment Goals Patient/Caregiver Goals return to work, be able to play catch w/son w/o hurting himself (never has d/t pain), B carpel tunnel release Personal Factors Other Personal Factors That May Effect neck pain, MENDEZ, depression, HTN Therapy/Recovery , 2 neck sugeries, Appy PT-OP-C Subjective Start: 11/03/20 17:49 Freq: Status: Active Protocol: Document 01/06/21 13:45 [facility] (Rec: 01/06/21 14:32 [facility] [id number]) OP-PT Subjective Patient Comments Patient Comments Pt reports pain recently has been down RUE but MENDEZ have improved PT-OP-F Manual Assessment Start: 11/03/20 17:49 Freq: Status: Active Protocol: Document 11/04/20 15:22 [facility] (Rec: 11/04/20 16:47 [facility] [id number]) Manual Assessments Soft Tissue Assessment Soft Tissue Mobility Assessment scar significantly adhered, UT & LS, scalenes tight R>L, L>R pec tightness Joint Mobility Assessment Joint Mobility Assessment R 1st rib elevated PT-OP-J Posture/Palpation/Skin Start: 11/03/20 17:49 Freq: Status: Active Protocol: Document 11/04/20 15:22 [facility] (Rec: 11/04/20 16:47 [facility] [id number]) Posture Evaluation [facility] Postural Classification System [facility] Postural Classifications Posterior/Anterior Vertebral Compression Test 1 Comments Posture Comments iknc kyphosis, fwd rounded shoulders , fwd head w/upper cervical ext PT-OP-K Range of Motion Start: 11/03/20 17:49 Freq: Status: Active Protocol: Document 11/04/20 15:22 [facility] (Rec: 11/04/20 16:47 [facility] [id number]) Cervical Spine Range of Motion Cervical Spine Active Degrees Flexion 45 Extension 32 Rotation Left 36 Rotation Right 36 Lateral Flexion Left 38 Lateral Flexion Right 29 ROM Limitations Soft Tissue Tightness,Bony Restriction,Pain PT-OP-L Special Tests Start: 11/03/20 17:49 Freq: Status: Active Protocol: Document 11/04/20 15:22 [facility] (Rec: 11/04/20 16:47 [facility] [id number]) Special Tests Cervical Spine Special Tests Spurling's Test Test Results neg Vertebral Artery Test Results neg Alar Ligament Test Results neg Neural Special Tests- Upper Body Ulnar Nerve Tension Test Results neg R, positive L Radial Nerve Tension Test Results neg L, positive R Median Nerve Tension Test Results positive B PT-OP-M Strength Start: 11/03/20 17:49 Freq: Status: Active Protocol: Document 11/04/20 15:22 [facility] (Rec: 11/04/20 16:47 [facility] [id number]) Shoulder Strength Shoulder Manual Muscle Testing Right Flexion 4+ Good+ Extension 5 Normal Abduction (C5) 4+ Good+ Adduction 5 Normal External Rotation 5 Normal Internal Rotation 5 Normal Horizontal Abduction 5 Normal Horizontal Adduction 5 Normal Left Flexion 4+ Good+ Extension 5 Normal Abduction (C5) 4+ Good+ Adduction 5 Normal External Rotation 5 Normal Internal Rotation 5 Normal Horizontal Abduction 5 Normal Horizontal Adduction 5 Normal Elbow/Forearm Strength Elbow and Forearm Manual Muscle Testing Right Flexion (C6) 4 Good Extension (C7) 5 Normal Pronation 5 Normal Supination 5 Normal Comments pain w/supination Left Flexion (C6) 4 Good Extension (C7) 5 Normal Pronation 5 Normal Supination 5 Normal Hand Follow Up Manager/Pinch Strength Hand Strength Right Comments 115#, 100#, 100# graphite pan drier tender strength Left Comments 130#, 105#, 75# graphite pan drier tender strength PT-OP-Q Treatments Start: 11/03/20 17:49 Freq: Status: Active Protocol: Document 01/06/21 13:45 [facility] (Rec: 01/06/21 14:32 [facility] [id number]) Therapeutic Exercises Supine Exercises Foam Roller Supine Exercise Name Habd & flex Equipment Used full foam roll Reps/Minutes 10 Prone Exercises ER Prone Exercise Name 90/90 ER Side bilateral Equipment Used 1# Reps/Minutes 2x10 Comments 0ver tball Habd Prone Exercise Name over green tball Side bilateral Equipment Used 2# B Reps/Minutes 2x10 ext Prone Exercise Name over green tball Side bilateral Equipment Used 2# B Reps/Minutes 2x10 Sidelying Exercises open book Side bilateral Reps/Minutes 10 Other Exercises quadruped Other Exercise Name 1. alt UE lift 2. alt LE lift Side bilateral Reps/Minutes 10 ea thomas pose Other Exercise Name 1. fwd 2. 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 LTG Duration 01/04/21 ROM Halfway Goal (LTG) pt will improve neck ROM for rotations by at least 20 deg to improve ability to turn when driving. LTG Duration 01/04/21 strength Short Term Goal (STG) pt will be indep with HEP. 11/06/20: Initiated: DNF, scap retraction w/ shld ER TB, pec/ UT/ lev scap stretching, CS rotation and ext SNAGS, self STMs using theracane/ racquetball. STG Duration 12/05/20 Halfway Goal (LTG) Pt will score 5/5 on EFTto show imrpoved scap and core stabiltiy w/force applied to his system along w/normal graphite pan drier tender strength for his age w/3 trials. LTG Duration 01/04/21 NDI Impairment 27/50 Short Term Goal (STG) Pt will imrpove NDI to at least 22/50 to show improved functional ability. STG Duration 12/05/20 Halfway Goal (LTG) Pt will imrpove NDI to at least 12/50 to show improved functional ability. LTG Duration 01/04/21 Assessment Summary Assessment Pt able to progress to 1# with ER today over tball. He has pain with SB and CS rotation on R side. Performed STM wtih AROM into movements with pt able to improve to no pain by end of session with both SB and rotation. Pt feels he has good relief after therapy for several hours but pain always returns the next morning when he wakes up. Pt will see for injections and more imaging at end of January. Physical Therapy Plan Frequency and Duration Frequency of Treatment 1-2x.week Duration of Treatment 3 months Plan of Care Start Date 11/04/20 Plan of Care End Date 02/04/21 Therapeutic Interventions Therapeutic Interventions Aquatic Therapy,Balance Training,Gait Training,Home Exercise Program,Joint Mobilizations,Manual Therapy, Neuromuscular Re-education, Patient/Caregiver Education, Self-Care/Home Management,Soft Tissue Mobilization,Taping, Therapeutic Activities, Therapeutic Exercises Modalities Cold Pack/Ice Massage,Electric Stimulation,Hot Packs, Ultrasound Next Visit Focus/Plan Next Note Type Treatment Note Next Visit Plan progress strengthening & thoracic moblity exercises, manual for improved range
--- NOTE | 2021-01-13 13:47 | PT.OTN ---
Current Diagnoses Spondylosis without myelopathy or radiculopathy, cervical region (01/13/21) Pain in right hand (01/13/21) Pain in left hand (01/13/21) Abnormal posture (01/13/21) Weakness (01/13/21) Physical Therapy Treatment Note PT-OP-A Visit Information Start: 11/03/20 17:49 Freq: Status: Active Protocol: Document 01/13/21 13:00 [facility] (Rec: 01/13/21 13:21 [facility] [id number]) Out-Patient Physical Therapy Visit Information Visit Information Visit Type Discharge Summary Visit Start Time 13:00 Visit Stop Time 13:38 Total Visit Minutes 38 Visit Number 11 Number of QUALITY ASSURANCE TEST PROGRAM MANAGER Visits 0 PT-OP-B Current Condition Start: 11/03/20 17:49 Freq: Status: Active Protocol: Document 11/04/20 15:22 [facility] (Rec: 11/04/20 16:47 [facility] [id number]) Current Condition History of Current Condition Onset Date 13 year old Current Complaints neck pain, arm pain, MENDEZ History of Current Condition Pt reports his last surgery helped his legs (had pain in legs & difficulty walking) and that got better but not his arms. Pt just had a EMG done at [facility] and they told him C5 -8 was messed up mostly on L and some on R. His MDs have told him he has DDD & arthritis. Pt reprots pain in neck started at 13 playing football (he was ramming his head into other players-no specific injury but just noticed neck bothering him then). It just got worse as he got older. Pt got an injection 4-5 years ago and has 3-4 of them over last decade but none have helped. He is supposed ot schedule to get an injection soon. Pt reports this is the first time that the MD thinks that degernation is causing the nerve symptoms. Pt reports he did PT after last surgery and legs got better but neck and arms never got better. Pt reports pain is about the same since when he last got surgery. 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 Pt reports hands don't wrok well so things take him twice as long. denies numbness tingling or lightheadness or dizziness Prior Treatments and Tests surgeries, injections , C5-6 ACDF over 11 years ago, LC6-7, C7-T1 laminotomy/foraminotomy and R C4-5 and C5-6 laminectomy and foraminotomy Future Testing and Treatments Planned Dr. Rivas doing injection Treatment Goals Patient/Caregiver Goals return to work, be able to play catch w/son w/o hurting himself (never has d/t pain), B carpel tunnel release Personal Factors Other Personal Factors That May Effect neck pain, MENDEZ, depression, HTN Therapy/Recovery , 2 neck sugeries, Appy PT-OP-C Subjective Start: 11/03/20 17:49 Freq: Status: Active Protocol: Document 01/13/21 13:00 [facility] (Rec: 01/13/21 13:21 [facility] [id number]) OP-PT Subjective Patient Comments Patient Comments Pt reports R shoulder and neck sore today. Patient Reported Progress Same Patient Questionnaires Neck Disability Index NDI Score 24 PT-OP-F Manual Assessment Start: 11/03/20 17:49 Freq: Status: Active Protocol: Document 11/04/20 15:22 [facility] (Rec: 11/04/20 16:47 [facility] [id number]) Manual Assessments Soft Tissue Assessment Soft Tissue Mobility Assessment scar significantly adhered, UT & LS, scalenes tight R>L, L>R pec tightness Joint Mobility Assessment Joint Mobility Assessment R 1st rib elevated PT-OP-J Posture/Palpation/Skin Start: 11/03/20 17:49 Freq: Status: Active Protocol: Document 01/13/21 13:22 [facility] (Rec: 01/13/21 13:28 [facility] [id number]) Posture Evaluation John Postural Classification System Elbow Flexion Test 3 PT-OP-K Range of Motion Start: 11/03/20 17:49 Freq: Status: Active Protocol: Document 01/13/21 13:22 [facility] (Rec: 01/13/21 13:28 [facility] [id number]) Cervical Spine Range of Motion Cervical Spine Active Degrees Flexion 60 Extension 35 Rotation Left 54 Rotation Right 42 Lateral Flexion Left 44 Lateral Flexion Right 45 ROM Limitations Soft Tissue Tightness,Bony Restriction,Pain PT-OP-L Special Tests Start: 11/03/20 17:49 Freq: Status: Active Protocol: Document 11/04/20 15:22 [facility] (Rec: 11/04/20 16:47 [facility] [id number]) Special Tests Cervical Spine Special Tests Spurling's Test Test Results neg Vertebral Artery Test Results neg Alar Ligament Test Results neg Neural Special Tests- Upper Body Ulnar Nerve Tension Test Results neg R, positive L Radial Nerve Tension Test Results neg L, positive R Median Nerve Tension Test Results positive B PT-OP-M Strength Start: 11/03/20 17:49 Freq: Status: Active Protocol: Document 01/13/21 13:22 [facility] (Rec: 01/13/21 13:28 [facility] [id number]) Hand Port Steward/Pinch Strength Hand Strength Right Comments 115#, 125#, 115# partner manager strength Left Comments 130#, 135#, 125# partner manager strength PT-OP-Q Treatments Start: 11/03/20 17:49 Freq: Status: Active Protocol: Document 01/13/21 13:00 [facility] (Rec: 01/13/21 13:21 [facility] [id number]) Therapeutic Exercises Prone Exercises ER Prone Exercise Name 90/90 ER Side bilateral Equipment Used 1# Reps/Minutes 2x10 Comments 0ver tball Habd Prone Exercise Name over green tball Side bilateral Equipment Used 3# B Reps/Minutes 2x10 ext Prone Exercise Name over green tball Side bilateral Equipment Used 3# B Reps/Minutes 2x10 Other Exercises thread the needle Side bilateral Reps/Minutes 30 sec hold quadruped Other Exercise Name 1. alt UE lift 2. alt LE lift Side bilateral Reps/Minutes 15 ea Comments max cues for scap poistion thomas pose Other Exercise Name 1. fwd Side bilateral Reps/Minutes 30 sec ea Manual Therapy Treatment Soft Tissue Mobilization STMs Body Location R UT, paraspinals, scalenes Mobilization Type Rolling,Strumming Intensity/Depth Moderate Body Position Sidelying Self-Care/Home Management Treatment Education Other Education edu for scap position w/ posture & checking often in day. Edu re: gradually inc activity like walks and shooting around/throwing short distances for son for short bouts like 5 min at a time w/ gradual increase. edu cont to cont HEP and cont strengthening and stretching to help. 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 LTG Duration has not tried ROM Fdc Goal (LTG) pt will improve neck ROM for rotations by at least 20 deg to improve ability to turn when driving. LTG Duration improved L >R strength Short Term Goal (STG) pt will be indep with HEP. 11/06/20: Initiated: DNF, scap retraction w/ shld ER TB, pec/ UT/ lev scap stretching, CS rotation and ext SNAGS, self STMs using theracane/ racquetball. STG Duration achieved Fdc Goal (LTG) Pt will score 5/5 on EFTto show imrpoved scap and core stabiltiy w/force applied to his system along w/normal partner manager strength for his age w/3 trials. LTG Duration improved EFT w/L normal interventionist trength, R about age appropriate NDI Impairment 27/50 Short Term Goal (STG) Pt will imrpove NDI to at least 22/50 to show improved functional ability. STG Duration 12/05/20 Fdc Goal (LTG) Pt will imrpove NDI to at least 12/50 to show improved functional ability. LTG Duration improved slightly to 24 Assessment Summary Assessment Pt has felt he has plateaued w /progress w/therapy and has not noted imrpoved functional ability or pain since starting PT except w/MENDEZ. He is indep w /HEP and ecnouraged to cont at home and discussed self management. Pt has shown improvements in ROM and strengtha nd activity tolerance sicne starting PT and pt educated on how cont HEP is important to maintain this and to gradually inc active activitlies. Physical Therapy Plan Discharge Physical Therapy Discharge Reasons Plateau in Progress
--- NOTE | 2021-01-13 13:48 | PT.OPDS ---
Current Diagnoses Spondylosis without myelopathy or radiculopathy, cervical region (01/13/21) Pain in right hand (01/13/21) Pain in left hand (01/13/21) Abnormal posture (01/13/21) Weakness (01/13/21) Visit Care Team Role Provider Type Karena Mora MD Family Provider Physician Primary Care Provider Specialty: Family Practice Address: [address] [place] [address], [place], [address] Email: [email or web address] Paula Caban MD Attending Provider Non-Staff Referring Provider Specialty: Medical Address: [address] [place] [address], [place], [address] Email: Visit Number Visit Number 11 Discharge Summary PT-OP-B Current Condition Start: 11/03/20 17:49 Freq: Status: Active Protocol: Document 11/04/20 15:22 [facility] (Rec: 11/04/20 16:47 [facility] [id number]) Current Condition History of Current Condition Onset Date 13 year old Current Complaints neck pain, arm pain, MENDEZ History of Current Condition Pt reports his last surgery helped his legs (had pain in legs & difficulty walking) and that got better but not his arms. Pt just had a EMG done at [facility] and they told him C5 -8 was messed up mostly on L and some on R. His MDs have told him he has DDD & arthritis. Pt reprots pain in neck started at 13 playing football (he was ramming his head into other players-no specific injury but just noticed neck bothering him then). It just got worse as he got older. Pt got an injection 4-5 years ago and has 3-4 of them over last decade but none have helped. He is supposed ot schedule to get an injection soon. Pt reports this is the first time that the MD thinks that degernation is causing the nerve symptoms. Pt reports he did PT after last surgery and legs got better but neck and arms never got better. Pt reports pain is about the same since when he last got surgery. 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 Pt reports hands don't wrok well so things take him twice as long. denies numbness tingling or lightheadness or dizziness Prior Treatments and Tests surgeries, injections , C5-6 ACDF over 11 years ago, LC6-7, C7-T1 laminotomy/foraminotomy and R C4-5 and C5-6 laminectomy and foraminotomy Future Testing and Treatments Planned Dr. Rivas doing injection Treatment Goals Patient/Caregiver Goals return to work, be able to play catch w/son w/o hurting himself (never has d/t pain), B carpel tunnel release Personal Factors Other Personal Factors That May Effect neck pain, MENDEZ, depression, HTN Therapy/Recovery , 2 neck sugeries, Appy PT-OP-C Subjective Start: 11/03/20 17:49 Freq: Status: Active Protocol: Document 01/13/21 13:00 [facility] (Rec: 01/13/21 13:21 [facility] [id number]) OP-PT Subjective Patient Comments Patient Comments Pt reports R shoulder and neck sore today. Patient Reported Progress Same Patient Questionnaires Neck Disability Index NDI Score 24 PT-OP-F Manual Assessment Start: 11/03/20 17:49 Freq: Status: Active Protocol: Document 11/04/20 15:22 [facility] (Rec: 11/04/20 16:47 [facility] [id number]) Manual Assessments Soft Tissue Assessment Soft Tissue Mobility Assessment scar significantly adhered, UT & LS, scalenes tight R>L, L>R pec tightness Joint Mobility Assessment Joint Mobility Assessment R 1st rib elevated PT-OP-J Posture/Palpation/Skin Start: 11/03/20 17:49 Freq: Status: Active Protocol: Document 01/13/21 13:22 [facility] (Rec: 01/13/21 13:28 [facility] [id number]) Posture Evaluation John Postural Classification System Elbow Flexion Test 3 PT-OP-K Range of Motion Start: 11/03/20 17:49 Freq: Status: Active Protocol: Document 01/13/21 13:22 [facility] (Rec: 01/13/21 13:28 [facility] [id number]) Cervical Spine Range of Motion Cervical Spine Active Degrees Flexion 60 Extension 35 Rotation Left 54 Rotation Right 42 Lateral Flexion Left 44 Lateral Flexion Right 45 ROM Limitations Soft Tissue Tightness,Bony Restriction,Pain PT-OP-L Special Tests Start: 11/03/20 17:49 Freq: Status: Active Protocol: Document 11/04/20 15:22 [facility] (Rec: 11/04/20 16:47 [facility] [id number]) Special Tests Cervical Spine Special Tests Spurling's Test Test Results neg Vertebral Artery Test Results neg Alar Ligament Test Results neg Neural Special Tests- Upper Body Ulnar Nerve Tension Test Results neg R, positive L Radial Nerve Tension Test Results neg L, positive R Median Nerve Tension Test Results positive B PT-OP-M Strength Start: 11/03/20 17:49 Freq: Status: Active Protocol: Document 01/13/21 13:22 [facility] (Rec: 01/13/21 13:28 [facility] [id number]) Hand Die Designer/Pinch Strength Hand Strength Right Comments 115#, 125#, 115# upkeep mechanic strength Left Comments 130#, 135#, 125# upkeep mechanic strength PT-OP-T Assessment and Plan Start: 11/03/20 17:49 Freq: Status: Active Protocol: Document 01/13/21 13:00 [facility] (Rec: 01/13/21 13:21 [facility] [id number]) Physical Therapy Assessment Goals activities Shelter Goal (LTG) 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 LTG Duration has not tried ROM [place] Goal (LTG) pt will improve neck ROM for rotations by at least 20 deg to improve ability to turn when driving. LTG Duration improved L >R strength Short Term Goal (STG) pt will be indep with HEP. 11/06/20: Initiated: DNF, scap retraction w/ shld ER TB, pec/ UT/ lev scap stretching, CS rotation and ext SNAGS, self STMs using theracane/ racquetball. STG Duration achieved Shelter Goal (LTG) Pt will score 5/5 on EFTto show imrpoved scap and core stabiltiy w/force applied to his system along w/normal upkeep mechanic strength for his age w/3 trials. LTG Duration improved EFT w/L normal ordnance handler trength, R about age appropriate NDI Impairment Short Term Goal (STG) Pt will imrpove NDI to at least /50 to show improved functional ability. STG Duration 12/05/20 Shelter Goal (LTG) Pt will imrpove NDI to at least to show improved functional ability. LTG Duration improved slightly to 24 Assessment Summary Assessment Pt has felt he has plateaued w /progress w/therapy and has not noted imrpoved functional ability or pain since starting PT except w/MENDEZ. He is indep w /HEP and ecnouraged to cont at home and discussed self management. Pt has shown improvements in ROM and strengtha nd activity tolerance sicne starting PT and pt educated on how cont HEP is important to maintain this and to gradually inc active activitlies. Physical Therapy Plan Discharge Physical Therapy Discharge Reasons Plateau in Progress
== END 2021-01-14 12:49 | disposition home or self-care (01) ==
LOC: PHYS 13:00
PROVIDERS: Family Provider Family Medicine; PCP Family Medicine; Referring Provider Neurological Surgery; Visit Provider Neurological Surgery
DX: M47.812 Spondylosis without myelopathy or radiculopathy, cervical region (principal); R53.1 Weakness; R29.3 Abnormal posture; M79.642 Pain in left hand; M79.641 Pain in right hand
CPT/HCPCS: 97110; 97140; 97162; 97535

== ENCOUNTER → 2021-01-28 11:45 | Outpatient (CLI) | payer OTHER, MEDICAID, SELFPAY ==
--- NOTE | 2021-01-28 11:46 | DI.RAD.S_ITS ---
PROCEDURE: XR CERVICAL SPINE 4V OR 5V INDICATIONS: NECK PAIN TECHNIQUE: 5 views of the cervical spine acquired. COMPARISON: [facility], MR, MR CERVICAL SPINE WO CON, 07/17/2020, 16:56. MR, MR CERVICAL SPINE WO CON, 12/08/2017, 15:27. [facility], MR, MR CERVICAL SPINE WITHOUT CONTRAST, 06/14/2017, 20:02. [facility], CR, XR CERVICAL SPINE 6+ VIEWS, 06/08/2017, 15:24. FINDINGS: Bones: No fractures or dislocations to the C7 level. There are postsurgical changes with discectomy and anterior fusion at C5-C6. Degenerative disc disease is present, moderate at C6-C7, and mild at C4-C5. Mild bilateral facet arthropathy. Oblique images demonstrate moderate bony foraminal stenoses at C3-C4 bilaterally, and mild foraminal stenosis at C5-C6 and C6-C7 on the left. Soft tissues: No prevertebral soft tissue swelling. IMPRESSION: 1. Degenerative and postsurgical changes in cervical spine as described. 2. Moderate foraminal stenoses at C3-C4 bilaterally, and mild foraminal stenosis at C5-C6 and C6-C7 on the left. Dictated by: Kwasi Villa M.D. on 01/28/2021 at 17:20 Approved by: Kwasi Villa M.D. on 01/28/2021 at 17:23
== END ==
PROVIDERS: Family Provider Family Medicine; PCP Family Medicine; Referring Provider Physical Medicine & Rehabilitation; Visit Provider Physical Medicine & Rehabilitation
DX: M54.2 Cervicalgia (principal); M50.121 Cervical disc disorder at C4-C5 level with radiculopathy; M48.02 Spinal stenosis, cervical region; G89.29 Other chronic pain; Z98.1 Arthrodesis status
CPT/HCPCS: 72050

== ENCOUNTER → 2021-09-15 16:35 | Outpatient (CLI) | payer OTHER, MEDICAID, SELFPAY ==
--- NOTE | 2021-09-15 | DI.RAD.S_ITS ---
PROCEDURE: XR CERVICAL SPINE 4V OR 5V INDICATIONS: cervical spondylosis TECHNIQUE: 5 views of the cervical spine acquired. COMPARISON: [facility], CR, XR CERVICAL SPINE 6+ VIEWS, 06/08/2017, 15:24. [facility], CR, XR CERVICAL SPINE 4V OR 5V, 01/28/2021, 11:50. FINDINGS: Bones: No fractures or dislocations to the T1 level. Anterior cervical fixation at C5-6. Oblique images demonstrate neural foraminal narrowing on the left at C5 -7. Soft tissues: No prevertebral soft tissue swelling. IMPRESSION: Cervical spine degeneration as detailed above. Dictated by: Vineet Fair M.D. on 09/15/2021 at 17:01 Approved by: Vineet Fair M.D. on 09/15/2021 at 17:03
== END ==
PROVIDERS: Family Provider Family Medicine; PCP Family Medicine; Referring Provider Neurological Surgery; Visit Provider Neurological Surgery
DX: M50.122 Cervical disc disorder at C5-C6 level with radiculopathy; M48.02 Spinal stenosis, cervical region
CPT/HCPCS: 72050

== ENCOUNTER → 2021-10-21 13:38 | Outpatient (CLI) | payer OTHER, MEDICAID, SELFPAY ==
--- NOTE | 2021-10-21 | DI.MRI.S_ITS ---
PROCEDURE: MR CERVICAL SPINE WO CON INDICATIONS: CERVICAL PAIN TECHNIQUE: Noncontrast sagittal T1 spin echo and T2 fast spin echo, sagittal STIR, foraminal oblique sagittal T2 fast spin echo, and axial gradient echo or T2 fast spin echo through the cervical spine. COMPARISON: [facility], MR, MR CERVICAL SPINE WO CON, 07/17/2020, 16:56. FINDINGS: Image quality: Excellent. Alignment and Curvature: There is loss of normal cervical lordosis. Bone Marrow: Marrow demonstrates normal overall signal. Anterior fusion C5-C6 is present. Mild reactive signal throughout the endplates of the cervical spine. Spinal Cord: Visualized spinal cord has normal size and signal. No cerebellar tonsillar herniation. Paraspinous Soft Tissues: No paravertebral masses. Prevertebral soft tissues are normal in thickness. C2-C3: Moderate disc desiccation. Mild diffuse disc bulge. Congenital canal stenosis. Mild facet and uncovertebral hypertrophy bilaterally. Moderate canal stenosis. Moderate bilateral foraminal stenosis. No significant change. C3-C4: Congenital canal stenosis. Mild disc desiccation and diffuse disc bulge with superimposed left paracentral protrusion. Mild facet and uncovertebral hypertrophy bilaterally. Moderate to severe canal stenosis. Minimal anterior cord flattening. Severe left greater than right foraminal stenosis with left greater than right C4 nerve root compression. No significant change C4-C5: Moderate disc desiccation. Mild diffuse disc bulge. Congenital canal stenosis. Mild facet and uncovertebral hypertrophy bilaterally. Moderate canal stenosis. Moderate to severe left and severe right foraminal stenosis. Right greater than left C5 nerve root compression. No significant change. C5-C6: Anterior fusion hardware. Mild residual disc bulge with small superimposed residual right posterolateral protrusion/osteophyte. Congenital canal stenosis. Mild facet and uncovertebral hypertrophy bilaterally. Moderate to severe canal stenosis. Mild cord flattening. Moderate to severe bilateral foraminal stenosis with bilateral C6 nerve root compression. No significant change. C6-C7: Moderate disc height loss and desiccation. Mild diffuse disc bulge. Congenital canal stenosis. Mild facet and uncovertebral hypertrophy bilaterally. Moderate canal stenosis. Moderate bilateral foraminal stenosis. No significant change. C7-T1: Mild disc height loss and desiccation. Mild diffuse disc bulge. Mild facet and uncovertebral hypertrophy bilaterally. Mild canal stenosis. Severe left and mild right foraminal stenosis. Left C8 nerve root compression. No significant change. IMPRESSION: 1. Postsurgical sequelae. 2. Diffuse congenital canal stenosis with superimposed multilevel degenerative disc and facet disease, as well as uncovertebral hypertrophy. 3. Multilevel canal stenoses, worst at C3-C4 and C5-C6 where there is associated cord flattening. 4. Multilevel foraminal stenoses, worst at C3-C4, C4-C5, C5-C6, and C7-T1, where there is associated intraforaminal nerve root compression. Recommend correlation with clinical symptoms to ascertain relevance of these findings. Dictated by: Jostin Adame M.D. on 10/21/2021 at 14:40 Approved by: Jostin Adame M.D. on 10/21/2021 at 14:47
== END ==
PROVIDERS: Family Provider Family Medicine; PCP Family Medicine
DX: M48.02 Spinal stenosis, cervical region (principal); M50.31 Other cervical disc degeneration, high cervical region; Z98.1 Arthrodesis status
CPT/HCPCS: 72141

== ENCOUNTER → 2022-03-31 15:21 | Outpatient (CLI) | payer OTHER, MEDICAID, SELFPAY ==
[2022-03-31 19:16] LABS: Alanine Aminotransferase 24 IU/L (<50); Albumin 4.3 g/dL (3.5-5.0); Albumin Globulin Ratio 1.3 (1.0-2.8); Alkaline Phosphatase 68 U/L (38-126); Aspartate Aminotransferase 25 IU/L (17-59); BUN Creatinine Ratio 16.3 (6-22); Bilirubin Total 0.3 mg/dL (0.2-1.3); Blood Urea Nitrogen 15 mg/dL (9-20); Calcium 8.9 mg/dL (8.4-10.2); Carbon Dioxide 25 mmol/L (22-32); Chloride 102 mmol/L (98-107); Cholesterol 302 mg/dL (140-199); Estimated Glomerular Filt Rate > 60 mL/min (>60); Globulin 3.2 g/dL (1.7-4.1); Glucose 82 mg/dL (70-100); HDL Cholesterol 37 mg/dL (40-60); HEMOLYSIS < 15 (0-50); LDL Cholesterol Calculated 210 mg/dL (<100); Potassium 3.8 mmol/L (3.4-5.1); Sodium 138 mmol/L (137-145); Total Protein 7.5 g/dL (6.3-8.2); Triglycerides 277 mg/dL (35-150)
== END ==
PROVIDERS: Family Provider Family Medicine; PCP Family Medicine; Referring Provider Family Medicine; Visit Provider Family Medicine
DX: Z13.9 Encounter for screening, unspecified (principal); I10 Essential (primary) hypertension
CPT/HCPCS: 36415; 80053; 80061

== ENCOUNTER 2023-03-30 12:52 | Day surgery (SDC) | payer OTHER, MEDICAID, SELFPAY ==
--- NOTE | 2023-03-30 | PATH_ITS ---
[facility] Accession Number: [id number] No. of containers..02 Tissue . 01 Material submitted: . PART A: gastrointestinal site - ANTRUM PART B: gastrointestinal site - GASTRIC BODY . 01 Diagnosis: A- STOMACH, ANTRUM, BIOPSY: - ANTRAL GASTRIC MUCOSA WITH MILD CHRONIC GASTRITIS. - NO H. PYLORI LIKE ORGANISMS IDENTIFIED (BY THE H/E AND IMMUNOHISTOCHEMICAL STAINED SLIDE SECTIONS). - NEGATIVE FOR INTESTINAL METAPLASIA, DYSPLASIA, OR MALIGNANCY. - SEE COMMENT: --- B- STOMACH, BIOPSY: - OXYNTIC GASTRIC MUCOSA WITH MILD REACTIVE GASTROPATHY. - NO H. PYLORI LIKE ORGANISMS IDENTIFIED (ON THE H/E-STAINED SECTIONS). - NEGATIVE FOR INTESTINAL METAPLASIA, DYSPLASIA OR MALIGNANCY. --- COMMENT: H. PYLORI IMMUNOHISTOCHEMICAL STAIN WAS PERFORMED ON PART A AND IS NEGATIVE. TECHNICAL NOTE: THE IMMUNOHISTOCHEMICAL STAINS REPORTED WERE PERFORMED AT [facility] ([address], [facility] [address]). THEY WERE DEVELOPED AND THEIR PERFORMANCE CHARACTERISTICS DETERMINED BY [employer]. THEY HAVE NOT BEEN CLEARED OR APPROVED BY THE [employer], ALTHOUGH SUCH APPROVAL IS NOT REQUIRED FOR ANALYTE-SPECIFIC REAGENTS OF THIS TYPE. TXN 04/05/2023 1717 Local . 01 Electronically signed: . Tawfeq MD Naima, Pathologist NPI- [id number] . 01 Gross description: . Part A: ANTRUM: Received in formalin is 1 fragment(s) of george, soft tissue measuring 0.4 x 0.2 x 0.1 cm submitted entirely in 1 cassette(s) Part B: GASTRIC BODY: Received in formalin are 2 fragment(s) of george, soft tissue measuring 0.2 x 0.1 x 0.1 cm to 0.3 x 0.1 x 0.1 cm submitted entirely in 1 cassette(s) /INOCENTE 03/31/2023 1850 Local . 01 Pathologist provided ICD-10: R10.9 . 01 CPT . 897498, [id number], [id number] Specimen Comment: A courtesy copy of this report has been sent to [phone] Performed at: 01 [facility] [address] [place] [address], [place], [place] [id number] MD Zachary Carl MD Phone: [phone]
[2023-03-30 13:13] VITALS: BP 131/86; PULSE 87; RESP 16; TEMP 36.4; O2SAT 99; BMI 34.0
[2023-03-30] MEDS: LACTATED RINGERS 1,000 ML 150 ML IV (13:44)
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
--- NOTE | 2023-03-30 16:00 | PM.OP.EC ---
Operative Date/Time/Diagnoses Date of procedure: 03/30/23 Time of procedure: 16:00 Pre-op diagnosis: Dysphagia and rectal bleeding Post-op diagnosis: same Procedure & Clinicians Study performed: EGD and colonoscopy Same procedure as scheduled: Yes Surgeon: Miguelito Larios Procedure Notes Procedure in detail: Surgeon: Miguelito Larios MD Anesthesia: Leonor Welsh CRNA Procedure in detail: A timeout was performed. A bite blocked was placed and monitors were attached to the patient. The patient was positioned in the left lateral decubitus position. Sedation was administered. Once the patient was sedated the endoscope was inserted through the bite block and passed through the esophagus and stomach and into the duodenum. No abnormalities were seen. We then withdrew the scope into the stomach. No ulcers were seen. We took random biopsies from the antrum. There was a small patch of erythema in the mid gastric body along the greater curve. A biopsy was taken from this patch as well as an adjacent area of gastric mucosa and sent as ?gastric body?. The endoscope was retroflexed and no hiatal hernia was seen. The endoscope was straightned and withdrawn into the esophagus. No obvious abnormalities were seen within the esophagus. Findings: A single small patch of erythema in the mid gastric body Next we repositioned the patient for a colonoscopy. A digital rectal exam was performed and was normal. The colonoscope was inserted and advanced to the cecum. The appendiceal orifice was identified and photographed. The scope was slowly withdrawn over greater than 6 minutes. No polyps or masses were seen however prep was inadequate to completely clear the colon despite copious irrigation and suctioning. The scope was retroflexed in the rectum and no other abnormality was seen. Findings: Inadequate prep EBL: 5 mL Scope withdrawal time: 7 minutes Sedation minutes: 33 minutes Post-procedure Recommendations: Colonscopy in 1 year Disposition: PACU
[2023-03-30 16:09] VITALS: BP 102/56; PULSE 91; RESP 11; TEMP 36.2; O2SAT 100
[2023-03-30 16:13] VITALS: BP 112/72; PULSE 98; RESP 15; TEMP 36.2; O2SAT 99
[2023-03-30 16:22] VITALS: BP 117/78; PULSE 88; RESP 20; TEMP 36.2; O2SAT 99
== END 2023-03-30 16:41 | disposition home or self-care (01) ==
PROVIDERS: Family Provider Family Medicine; PCP Family Medicine; Referring Provider Surgery; Visit Provider Surgery
PROC: 0DJ08ZZ Inspection of Upper Intestinal Tract, Via Natural or Artificial Opening Endoscopic (ICD-10-PCS; CPT 43235; principal; 2023-03-30 14:00)
PROC: 0DJD8ZZ Inspection of Lower Intestinal Tract, Via Natural or Artificial Opening Endoscopic (ICD-10-PCS; CPT 45378; 2023-03-30 14:00)
DX: K62.5 Hemorrhage of anus and rectum (principal); R13.10 Dysphagia, unspecified; K29.50 Unspecified chronic gastritis without bleeding; K31.9 Disease of stomach and duodenum, unspecified
CPT/HCPCS: 45378; 43239; J2250; J2704

== ENCOUNTER 2024-01-03 19:05 | Emergency (ER) | payer OTHER, MEDICAID, SELFPAY ==
[2024-01-03] VITALS (15 sets, daily range): BP systolic 135–174; BP diastolic 60–102; PULSE 71–93; RESP 18–24; TEMP 36.4; O2SAT 95–100; BMI 34.7
--- NOTE | 2024-01-03 19:34 | EKG_ITS ---
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
[2024-01-03 19:44] LABS: Add Manual Diff / Slide Review NO; Basophils Absolute Auto 100 /uL (0-100); Basophils Percent Auto 0.6 % (0-2); Eosinophils Absolute Auto 200 /uL (0-450); Hematocrit 42.4 % (41-53); Hemoglobin 14.3 g/dL (13.5-17.5); Lymphocytes Absolute Auto 4000 /uL (1100-4500); Lymphocytes Percent Auto 35.3 % (25-40); Mean Corpuscular HGB Conc 33.7 % (30-36); Mean Corpuscular Hemoglobin 31.1 PG (26-34); Mean Corpuscular Volume 92.3 fL (80-100); Monocytes Absolute Auto 1100 /uL (0-900); Neutrophils Absolute Auto 5900 /uL (1500-7000); Neutrophils Percent Auto 52.1 % (50-75); Platelet Count 353 X10^3/uL (150-400); Red Cell Distribution Width 13.8 % (11.6-14.8); White Blood Cell Count 11.4 X10^3/uL (4.5-11.0)
[2024-01-03] MEDS: SODIUM CHLORIDE 0.9% 1,000 ML 1000 ML IV ×2 (19:45→22:32)
[2024-01-03 19:53] LABS: Lactate (Lactic Acid) 3.1 mmol/L (0.7-2.1)
[2024-01-03] MEDS: diazePAM 10 MG/2 ML SYRINGE 5 MG IV (19:59)
[2024-01-03 20:00] LABS: Acetaminophen < 10 ug/mL (10-30); Alanine Aminotransferase 27 IU/L (<50); Albumin 5.2 g/dL (3.5-5.0); Albumin Globulin Ratio 1.9 (1.0-2.8); Alkaline Phosphatase 92 U/L (38-126); Aspartate Aminotransferase 27 IU/L (17-59); BUN Creatinine Ratio 11.8 (6-22); Bilirubin Total 0.5 mg/dL (0.2-1.3); Blood Urea Nitrogen 11 mg/dL (9-20); Calcium 9.2 mg/dL (8.4-10.2); Carbon Dioxide 23 mmol/L (22-32); Chloride 102 mmol/L (98-107); Estimated Glomerular Filt Rate > 60 mL/min (>60); Ethanol (ETOH) < 10 mg/dL; Globulin 2.7 g/dL (1.7-4.1); Glucose 115 mg/dL (70-100); HEMOLYSIS < 15 (0-50); Potassium 3.1 mmol/L (3.4-5.1); Sodium 137 mmol/L (137-145); Total Protein 7.9 g/dL (6.3-8.2)
[2024-01-03 20:10] LABS: Creatine Kinase 102 U/L (55-170)
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
[2024-01-03] MEDS: POTASSIUM CHLORIDE 20 MEQ/15 ML UDC 40 MEQ PO (20:27)
[2024-01-03] MEDS: ONDANSETRON 4 MG/2 ML INJ IV (20:51)
[2024-01-03 20:55] LABS: Appearance Urine UA CLEAR; Bilirubin Urine UA NEGATIVE (NEGATIVE); Color Urine UA YELLOW; Glucose Urine UA NEGATIVE (Negative); Ketones Urine UA 1+ (NEGATIVE); Leukocyte Esterase Urine UA NEGATIVE (NEGATIVE); Nitrite Urine UA NEGATIVE (Negative); Occult Blood Urine UA TRACE-INTACT (Negative); Protein Urine UA TRACE (Negative); Specific Gravity Urine UA 1.025 (1.000-1.035); Urobilinogen Urine UA 0.2 E.U./dL (0.2); pH Urine UA 5.5 (4.5-8.0)
[2024-01-03 20:58] LABS: Ur Creatinine Normal (Normal)
[2024-01-03 20:59] LABS: Ur Specific Gravity Normal (Normal); Urine Amphetamines Negative (Negative); Urine Barbiturates Negative (Negative); Urine Benzodiazepines Negative (Negative); Urine Cocaine Negative (Negative); Urine MDMA Negative (Negative); Urine Methadone Negative (Negative); Urine Methamphetamines Negative (Negative); Urine Opiates Negative (Negative); Urine Oxycodone Negative (Negative); Urine Phencyclidine Negative (Negative); Urine THC Negative (Negative); Urine Tricyclic Antidepressant Negative (Negative); Urine pH Normal (Normal)
[2024-01-03 21:02] LABS: Bacteria Urine Occasional (0-1); Culture Indicated Urine Cult Not Indicated; Mucus Urine 1+ (Negative); RBC Urine 1-5/HPF (0-5/HPF); Squamous Epithelial Cell Urine 0-1 /HPF (0-5/HPF); Urine Volume 10mL (spun); WBC Urine 0-1/HPF (0-5/HPF)
[2024-01-03 21:17] LABS: Reflexed Lactate in 2 Hours Y
[2024-01-03 21:50] LABS: Lactate 2HR (Lactic Acid Rflx) 2.3 mmol/L (0.7-2.1)
[2024-01-03] MEDS: KETOROLAC 30 MG/ML VIAL 15 MG IV (22:29)
== END 2024-01-03 23:57 | disposition home or self-care (01) ==
PROVIDERS: Emergency Provider Emergency Medicine; Family Provider Family Medicine; PCP Family Medicine
DX: R53.1 Weakness (principal); E87.6 Hypokalemia; R07.9 Chest pain, unspecified
CPT/HCPCS: 36415; 80053; 80305; 80320; 80329; 81001; 82550; 82962; 83605; 85025; 93005; 96361; 96374; 96375; 99284; G0480; J1885; J2405; J3360